=== PATIENT | female | born 1955 | race Asian ===

== ENCOUNTER → 2016-04-03 | Outpatient (CLI) | payer MEDICAID | LOC: WI 07:50 | PROVIDERS: ATTEND Internal Medicine Rheumatology | DX: M81.0 Age-related osteoporosis without current pathological fracture (principal); Z79.52 Long term (current) use of systemic steroids | CPT/HCPCS: 77080 ==

== ENCOUNTER → 2016-04-05 | Outpatient (CLI) | payer MEDICAID | LOC: OD 09:50 | PROVIDERS: ATTEND Internal Medicine Critical Care Medicine | DX: J44.9 Chronic obstructive pulmonary disease, unspecified (principal); K21.9 Gastro-esophageal reflux disease without esophagitis; R06.00 Dyspnea, unspecified; Z87.01 Personal history of pneumonia (recurrent); R91.8 Other nonspecific abnormal finding of lung field; J45.909 Unspecified asthma, uncomplicated; J45.901 Unspecified asthma with (acute) exacerbation | CPT/HCPCS: 36415; 82785 ==

== ENCOUNTER → 2016-04-25 | Outpatient (CLI) | payer MEDICAID ==
[2016-04-25 08:24] LABS: ABSOLUTE LYMPHOCYTES (AUTO) 1.4 10^3/uL (0.5-4.7); ABSOLUTE MONOCYTES (AUTO) 0.4 10^3/uL (0.1-1.4); ABSOLUTE NEUT (AUTO) 5.2 10^3/uL (1.7-8.2); BASOPHILS % (AUTO) 0.4 % (0-2); EOSINOPHILS % (AUTO) 0.2 % (0-6); HEMATOCRIT 42.2 % (36.0-47.0); HEMOGLOBIN 13.4 g/dL (12.0-15.5); LYMPHOCYTES % (AUTO) 19.4 % (13-45); MEAN CORPUSCULAR HEMOGLOBIN 21.4 pg (27.0-33.4); MEAN CORPUSCULAR HGB CONC 31.7 g/dL (32.0-36.0); MEAN CORPUSCULAR VOLUME 68 fl (80-97); MONOCYTES % (AUTO) 6.4 % (3-13); RED BLOOD COUNT 6.25 10^6/uL (3.72-5.28); RED CELL DISTRIBUTION WIDTH 14.8 % (11.5-14.0); SEGMENTED NEUTROPHILS % (AUTO) 73.6 % (42-78)
[2016-04-25 08:51] LABS: ALANINE AMINOTRANSFERASE 20 U/L (9-52); ALBUMIN 4.2 g/dL (3.5-5.0); ALKALINE PHOSPHATASE 52 U/L (38-126); ANION GAP 12 (5-19); ASPARTATE AMINO TRANSFERASE 31 U/L (14-36); BILIRUBIN,TOTAL 0.6 mg/dL (0.2-1.3); BLOOD UREA NITROGEN 15 mg/dL (7-20); CALCIUM 9.7 mg/dL (8.4-10.2); CARBON DIOXIDE 27 mmol/L (22-30); CHLORIDE 104 mmol/L (98-107); CHOLESTEROL 219.74 mg/dL (0-200); CREATININE RESULT 0.61 mg/dL (0.52-1.25); GLUCOSE 102 mg/dL (75-110); POTASSIUM 4.4 mmol/L (3.6-5.0); SODIUM 142.6 mmol/L (137-145); TOTAL PROTEIN 7.1 g/dL (6.3-8.2); TRIGLYCERIDES 49 mg/dL (<150)
[2016-04-25 09:02] LABS: DIRECT LDL 71 mg/dL (<100)
[2016-04-25 09:03] LABS: Direct HDL 126 mg/dL (>40)
== END ==
LOC: OD 07:26
PROVIDERS: ATTEND Internal Medicine
DX: R73.9 Hyperglycemia, unspecified (principal); I10 Essential (primary) hypertension; E78.5 Hyperlipidemia, unspecified; J45.901 Unspecified asthma with (acute) exacerbation; M30.1 Polyarteritis with lung involvement [Churg-Strauss]
CPT/HCPCS: 36415; 80053; 80061; 83036; 84443; 85025

== ENCOUNTER → 2017-01-25 | Outpatient (CLI) | payer MEDICAID ==
[2017-01-25 10:14] LABS: ABSOLUTE BASOPHILS # (AUTO) 0.1 10^3/uL (0.0-0.2); ABSOLUTE EOSINOPHILS # (AUTO) 0.5 10^3/uL (0.0-0.6); ABSOLUTE LYMPHOCYTES (AUTO) 1.4 10^3/uL (0.5-4.7); ABSOLUTE MONOCYTES (AUTO) 0.9 10^3/uL (0.1-1.4); ABSOLUTE NEUT (AUTO) 12.3 10^3/uL (1.7-8.2); BASOPHILS % (AUTO) 0.4 % (0-2); EOSINOPHILS % (AUTO) 3.2 % (0-6); HEMATOCRIT 40.5 % (36.0-47.0); HEMOGLOBIN 12.8 g/dL (12.0-15.5); HGB HCT DIFFERENCE -2.1; LYMPHOCYTES % (AUTO) 8.9 % (13-45); MEAN CORPUSCULAR HEMOGLOBIN 21.2 pg (27.0-33.4); MEAN CORPUSCULAR HGB CONC 31.5 g/dL (32.0-36.0); MEAN CORPUSCULAR VOLUME 67 fl (80-97); MONOCYTES % (AUTO) 5.7 % (3-13); RED BLOOD COUNT 6.03 10^6/uL (3.72-5.28); RED CELL DISTRIBUTION WIDTH 15.6 % (11.5-14.0); SEGMENTED NEUTROPHILS % (AUTO) 81.8 % (42-78); WHITE BLOOD COUNT 15.1 10^3/uL (4.0-10.5)
== END ==
LOC: OD 09:07
PROVIDERS: ATTEND Internal Medicine Critical Care Medicine
DX: J45.901 Unspecified asthma with (acute) exacerbation (principal); J44.9 Chronic obstructive pulmonary disease, unspecified; R91.8 Other nonspecific abnormal finding of lung field; J15.1 Pneumonia due to Pseudomonas; A31.9 Mycobacterial infection, unspecified; Z87.01 Personal history of pneumonia (recurrent)
CPT/HCPCS: 36415; 85025; 87015; 87070; 87077; 87101; 87116; 87186; 87205; 87206

== ENCOUNTER → 2017-02-07 | Outpatient (CLI) | payer MEDICAID | LOC: OD 11:14 | PROVIDERS: ATTEND Internal Medicine Critical Care Medicine | DX: A31.9 Mycobacterial infection, unspecified (principal); J82 Pulmonary eosinophilia, not elsewhere classified; K21.9 Gastro-esophageal reflux disease without esophagitis | CPT/HCPCS: 36415; 82785 ==

== ENCOUNTER 2017-02-25 15:48 | Inpatient (IN) | payer MEDICAID ==
--- NOTE | 2017-02-25 17:26 | EKG REPORT ---
SEVERITY:- NORMAL ECG - SINUS RHYTHM : Confirmed by: Demi Yu 25-Feb-2017 17:25:51
--- NOTE | 2017-02-25 17:30 | ER Document Report ---
ED Medical Screen (RME) - General Chief Complaint: Shortness Of Breath Stated Complaint: SHORTNESS OF BREATH Time Seen by Provider: 02/25/17 17:27 Mode of Arrival: Wheelchair Information source: Patient Notes: 61-year-old female presents to ED for shortness of breath for couple months. States she has been to Janusz Miramontes MD's office multiple times. States she had blood work chest x-ray and other test done this morning. States that the doctor's office called her and told her to come to the emergency room. VQ scan from earlier today shows high probability of a pulmonary emboli. Lungs at this time are diminished with wheezes, EKG is sinus rhythm, vital signs are stable with respirations of 20 pulse ox of 97 and pulse of 82. Patient states that the doctor gives her prednisone sometimes but as soon as she finished him the symptoms come right back she states that the last time she got prednisone was last week and she got 20 mg daily for 5 days. I have greeted and performed a rapid initial assessment of this patient. A comprehensive ED assessment and evaluation of the patient, analysis of test results and completion of medical decision making process will be conducted by an additional ED providers. TRAVEL OUTSIDE OF THE [place] IN LAST 30 DAYS: No - Related Data Allergies/Adverse Reactions: acetaminophen [From Percocet] Allergy (Severe, Verified 11/23/14 09:14) Anaphylaxis oxycodone HCl [From Percocet] Allergy (Severe, Verified 11/23/14 09:14) Anaphylaxis Shellfish * [Shellfish] Allergy (Severe, Verified 11/23/14 09:14) Anaphylaxis Past Medical History - Social History Chew tobacco use (# tins/day): No Frequency of alcohol use: Rare Drug Abuse: None - Past Medical History Cardiac Medical History: Denies: Hx Coronary Artery Disease, Hx Heart Attack, Hx Hypertension Pulmonary Medical History: Reports: Hx Asthma - inhalers Denies: Hx Bronchitis, Hx COPD, Hx Pneumonia Neurological Medical History: Denies: Hx Cerebrovascular Accident, Hx Seizures Renal/ Medical History: Denies: Hx Peritoneal Dialysis GI Medical History: Reports: Hx Ulcer. Denies: Hx Hepatitis, Hx Hiatal Hernia Musculoskeltal Medical History: Reports Hx Arthritis Infectious Medical History: Denies: Hx Hepatitis Past Surgical History: Denies: Hx Hysterectomy, Hx Mastectomy, Hx Open Heart Surgery, Hx Pacemaker - Immunizations Hx Diphtheria, Pertussis, Tetanus Vaccination: No Physical Exam - Vital signs Vitals: Temp Pulse Resp BP Pulse Ox 97.6 F 82 16 148/92 H 98 02/25/17 16:08 02/25/17 16:08 02/25/17 16:08 02/25/17 16:08 02/25/17 16:08 Course - Vital Signs Vital signs: Temp Pulse Resp BP Pulse Ox 97.6 F 82 16 148/92 H 98 02/25/17 16:08 02/25/17 16:08 02/25/17 16:08 02/25/17 16:08 02/25/17 16:08
[2017-02-25 19:37] LABS: INTERNATIONAL RATION (INR) 0.88; PROTHROMBIN TIME 12.6 SEC (11.4-15.4)
[2017-02-25 19:38] LABS: PARTIAL THROMBOPLASTIN TIME 36.8 SEC (23.5-35.8)
[2017-02-25] MEDS ORDERED: METHYLPREDNISOLONE INJ 125 MG/2 ML SDV IV ONE (19:54)
[2017-02-25] MEDS ORDERED: IPRATROPIUM/ALBUTEROL 0.5-2.5 MG/3 ML AMPUL NEB ONE (19:54)
--- NOTE | 2017-02-25 19:55 | ER Document Report ---
ED Respiratory Problem - General Chief Complaint: Shortness Of Breath Stated Complaint: SHORTNESS OF BREATH Time Seen by Provider: 02/25/17 17:27 Mode of Arrival: Wheelchair Notes: Patient is a 61-year-old female who presents emergency department complaining of cough, wheezing and shortness of breath since September. Patient states that she has been following with her primary care doctor Dr. Miramontes as well as her product safety associate Dr. Joseph who have done burst prednisone treatments for her maybe once or twice a month for shortness of breath. Patient states that her breathing improves but then approximately 10-14 days later she is back to shortness of breath and wheezing. Patient states that she is utilizing her home nebulizer treatments with minimal improvement in her symptoms. Patient was referred to the emergency department today by her primary care doctor based on results of her VQ scan today. Review of the chart shows concern for right- sided pulmonary embolism. Patient does admit to a history of recurrent travel she states that she drives up to [place] very frequently and recently flew back from [place] in November. She denies any history of PE or blood clot. Besides a history of asthma she denies any other medical problems. TRAVEL OUTSIDE OF THE [place] IN LAST 30 DAYS: No - Related Data Allergies/Adverse Reactions: acetaminophen [From Percocet] Allergy (Severe, Verified 11/23/14 09:14) Anaphylaxis oxycodone HCl [From Percocet] Allergy (Severe, Verified 11/23/14 09:14) Anaphylaxis Shellfish * [Shellfish] Allergy (Severe, Verified 11/23/14 09:14) Anaphylaxis Past Medical History - General Information source: Patient - Social History Smoking Status: Never Smoker Chew tobacco use (# tins/day): No Frequency of alcohol use: Rare Drug Abuse: None Family History: Reviewed & Not Pertinent Patient has suicidal ideation: No Patient has homicidal ideation: No - Past Medical History Cardiac Medical History: Denies: Hx Coronary Artery Disease, Hx Heart Attack, Hx Hypertension Pulmonary Medical History: Reports: Hx Asthma - inhalers Denies: Hx Bronchitis, Hx COPD, Hx Pneumonia Neurological Medical History: Denies: Hx Cerebrovascular Accident, Hx Seizures Renal/ Medical History: Denies: Hx Peritoneal Dialysis GI Medical History: Reports: Hx Ulcer. Denies: Hx Hepatitis, Hx Hiatal Hernia Musculoskeltal Medical History: Reports Hx Arthritis Infectious Medical History: Denies: Hx Hepatitis Past Surgical History: Reports: Hx Appendectomy, Hx Cholecystectomy. Denies: Hx Hysterectomy, Hx Mastectomy, Hx Open Heart Surgery, Hx Pacemaker - Immunizations Hx Diphtheria, Pertussis, Tetanus Vaccination: No Review of Systems - Review of Systems Constitutional: No symptoms reported EENT: No symptoms reported Cardiovascular: No symptoms reported Respiratory: See HPI Gastrointestinal: No symptoms reported Musculoskeletal: No symptoms reported -: Yes All other systems reviewed and negative Physical Exam - Vital signs Vitals: Temp Pulse Resp BP Pulse Ox 97.6 F 82 16 148/92 H 98 02/25/17 16:08 02/25/17 16:08 02/25/17 16:08 02/25/17 16:08 02/25/17 16:08 - Notes Notes: PHYSICAL EXAM GENERAL: Alert, interacts well. HEAD: Normocephalic, atraumatic. EYES: Pupils equal, round, and reactive to light. Extraocular movements intact. ENT: Oral mucosa moist, tongue midline. NECK: Full range of motion. Supple. Trachea midline. LUNGS: diffuse wheezes without rales, or rhonchi. No respiratory distress. HEART: Regular rate and rhythm. No murmurs, gallops, or rubs. ABDOMEN: Soft, nondistended, nontender. No guarding, rebound, or rigidity.. Bowel sounds present in all 4 quadrants. EXTREMITIES: Moves all 4 extremities spontaneously. No edema, radial and dorsalis pedis pulses 2/4 bilaterally. No cyanosis. NEUROLOGICAL: Alert and oriented x4. Normal speech. PSYCH: Normal affect, normal mood. SKIN: Warm, dry, normal turgor. No rashes or lesions noted. Course - Re-evaluation Re-evalutation: 02/25/17 20:00 Patient is a 61-year-old female who is hemodynamically stable, no acute distress and afebrile. Presentation is concerning for PE with cor pulmonale versus acute asthma exacerbation. Did review case with admitting hospitalist Dr. Kwok who recommends a CTA of the chest and will admit at this time. Patient will receive a dose of Lovenox as well as albuterol treatments in the department. Reviewed plan with family at the bedside who are agreeable with plan. - Vital Signs Vital signs: Temp Pulse Resp BP Pulse Ox 97.6 F 82 22 H 122/87 H 97 02/25/17 16:08 02/25/17 16:08 02/26/17 00:46 02/26/17 02:15 02/26/17 02:15 - Laboratory Laboratory results interpreted by me: 02/25/17 02/25/17 19:10 20:50 APTT 36.8 H ABG pO2 65.0 L ABG Total CO2 25.4 H ABG O2 Saturation 93.5 L - Diagnostic Test Radiology reviewed: Image reviewed, Reports reviewed - EKG Interpretation by Me EKG shows normal: Sinus rhythm Rate: Normal Rhythm: NSR When compared to previous EKG there are: No significant change Discharge - Discharge Clinical Impression: Pulmonary embolism Qualifiers: Pulmonary embolism type: other Chronicity: unspecified Acute cor pulmonale presence: with acute cor pulmonale Qualified Code(s): I26.09 - Other pulmonary embolism with acute cor pulmonale Condition: Stable Disposition: ADMITTED INPATIENT Admitting Provider: Hospitalist Unit Admitted: [facility]
[2017-02-25] MEDS: ALBUTEROL SULFATE 0.083% NEB 2.5 MG/3 ML AMPUL NEB SCH ×2 (20:17→21:41)
[2017-02-25 21:11] LABS: ARTERIAL BLOOD BASE EXCESS 0.4 mmol/L; ARTERIAL BLOOD H2CO3 1.11 mmol/L (1.05-1.35); ARTERIAL BLOOD HCO3 24.3 mmol/L (20-26); ARTERIAL BLOOD O2 SATURATION 93.5 % (94-98); ARTERIAL BLOOD PCO2 36.8 mmHg (35-45); ARTERIAL BLOOD PH 7.44 (7.35-7.45); ARTERIAL BLOOD TOTAL CO2 25.4 mmol/L (21-25)
[2017-02-25 21:13] LABS: ARTERIAL BLOOD FIO2 ROOM AIR
[2017-02-25] MEDS ORDERED: METHYLPREDNISOLONE INJ 40 MG/1 ML SDV IV SCH (22:00)
[2017-02-25] MEDS ORDERED: ENOXAPARIN SODIUM INJ 60 MG/0.6 ML DISP.SYRIN SUBCUT SCH ×2 (22:00)
[2017-02-25] MEDS ORDERED: LIDOCAINE 1% INJ-PF (10 MG/ML) 30 ML SDV ONE (23:23)
[2017-02-25] MEDS: ONDANSETRON HCL INJ/PF 4 MG/2 ML SDV IV PRN (23:47)
[2017-02-26 01:04] LABS: CREATINE KINASE MB 1.69 ng/mL (<4.55)
[2017-02-26 01:06] LABS: TROPONIN I < 0.012 ng/mL
--- NOTE | 2017-02-26 01:06 | RADIOLOGY REPORT (SQ) ---
EXAM DESCRIPTION: CHEST SINGLE VIEW CLINICAL HISTORY: 61 years, Female, central line placement COMPARISON: 02/25/2017. LIMITATIONS: None. FINDINGS: Normal lung volume, clear parenchyma, normal cardiac silhouette, and intact bony thorax. Left subclavian central line tip at the cavoatrial junction. IMPRESSION: No acute cardiopulmonary findings. 2010 [employer]- All Rights Reserved
[2017-02-26] MEDS ORDERED: MAG HYDROX/AL HYDROX/SIMETH SUSP 30 ML UDCUP PO PRN (01:27)
[2017-02-26] MEDS ORDERED: ACETAMINOPHEN 325 MG TABLET PO ONE (01:28)
--- NOTE | 2017-02-26 01:46 | RADIOLOGY REPORT (SQ) ---
EXAM DESCRIPTION: CTA CHEST CLINICAL HISTORY: 61 years Female, SOB, PE, eval location COMPARISON: 02/25/2017. TECHNIQUE: 80 mL Isovue-370 IV contrast. Coronal and sagittal reformat. This exam was performed according to our departmental dose-optimization program, which includes automated exposure control, adjustment of the mA and/or kV according to patient size and/or use of iterative reconstruction technique. FINDINGS: Small soft tissue emphysema of the left neck and left supraclavicular space and left upper mediastinum. Bilateral mammary prostheses; multiple folds of the left mammary prosthesis partially imaged which may indicate decompression/rupture. Left subclavian central line tip at the cavoatrial junction. Small calcified granuloma of the right hilum and right lower lobe. Mild dextroconvexity. No pulmonary embolus. No right ventricular strain. Inferior neck, lungs, airway, lymphatics, heart, vasculature, upper abdomen, and musculoskeleton appear otherwise unremarkable. IMPRESSION: 1. Small nonspecific soft tissue emphysema of the left upper hemithorax and minimally at the left upper mediastinum. 2. Possible decompression/rupture of a left mammary prosthesis; consider MRI correlation. 3. No pulmonary embolus.
[2017-02-26] MEDS ORDERED: PROMETHAZINE HCL INJ 25 MG/1 ML VIAL IV ONE (01:47)
[2017-02-26 02:26] LABS: APPEARANCE,URINE CLEAR; BILIRUBIN,URINE NEGATIVE (NEGATIVE); COLOR,URINE COLORLESS; GLUCOSE, URINE NEGATIVE (NEGATIVE); KETONES,URINE NEGATIVE (NEGATIVE); LEUKOCYTE ESTERASE,URINE NEGATIVE (NEGATIVE); NITRITE,URINE NEGATIVE (NEGATIVE); PROTEIN,URINE NEGATIVE (NEGATIVE); URINE SPECIFIC GRAVITY 1.015; UROBILINOGEN,URINE NEGATIVE mg/dL (<2.0)
[2017-02-26] MEDS: PREGABALIN 100 MG CAPSULE PO SCH ×4 (02:57→21:49)
[2017-02-26] MEDS: NORMAL SALINE 1000 ML 1,000 ML IV PRN (03:51)
[2017-02-26] MEDS ORDERED: PROMETHAZINE HCL INJ 25 MG/1 ML VIAL IV PRN (06:05)
[2017-02-26] MEDS ORDERED: NORMAL SALINE 1000 ML 1,000 ML IV ONE (06:05)
--- NOTE | 2017-02-26 06:12 | PDOC H&P ---
History of Present Illness Admission Date/PCP: 02/25/17 21:08 GURDEEP BANG, History of Present Illness: ROSEMARIE SOOD is a 61 year old female with past medical history of Churg- Emery disease, neuropathy, COPD who presents with shortness of breath. She reports that she has been short of breath on and off since September. She reports that she does intermittently improve when she is on steroids. She reports over the last month she has had increasing shortness of breath as well as dyspnea on exertion and dizziness. She denies any lower extremity swelling. Patient obtain an outpatient VQ scan which was found to be positive for pulmonary embolus. She is referred to the hospitalist service for evaluation of pulmonary embolus. Past Medical History Cardiac Medical History: Denies: Coronary Artery Disease, Myocardial Infarction, Hypertension Pulmonary Medical History: Reports: Asthma - inhalers Denies: Bronchitis, Chronic Obstructive Pulmonary Disease (COPD), Pneumonia Neurological Medical History: Denies: Seizures GI Medical History: Denies: Hepatitis, Hiatal Hernia Musculoskeltal Medical History: Reports: Arthritis Hematology: Denies: Anemia, Sickle Cell Disease Past Surgical History Past Surgical History: Reports: Appendectomy, Cholecystectomy, Other - Breast implants Denies: Amputation, Hysterectomy, Mastectomy, Pacemaker Social History Smoking Status: Never Smoker Frequency of Alcohol Use: None Hx Recreational Drug Use: No Hx Prescription Drug Abuse: No - Advance Directive Resuscitation Status: Full Code Surrogate healthcare decision maker:: Kristina Sky, Daughter Family History Family History: DM, Other - Asthma Parental Family History Reviewed: Yes Children Family History Reviewed: Yes Sibling(s) Family History Reviewed.: Yes Medication/Allergy Allergies/Adverse Reactions: acetaminophen [From Percocet] Allergy (Severe, Verified 11/23/14 09:14) Anaphylaxis oxycodone HCl [From Percocet] Allergy (Severe, Verified 11/23/14 09:14) Anaphylaxis Shellfish * [Shellfish] Allergy (Severe, Verified 11/23/14 09:14) Anaphylaxis Review of Systems Constitutional: ABSENT: chills, fever(s), headache(s), weight gain, weight loss Eyes: ABSENT: visual disturbances Ears: ABSENT: hearing changes Cardiovascular: PRESENT: dyspnea on exertion, orthropnea. ABSENT: chest pain, edema, palpitations Respiratory: PRESENT: dyspnea. ABSENT: cough, hemoptysis, sputum Gastrointestinal: PRESENT: nausea. ABSENT: abdominal pain, constipation, diarrhea, hematemesis, hematochezia, melena, vomiting Genitourinary: ABSENT: dysuria, hematuria Musculoskeletal: ABSENT: joint swelling Integumentary: ABSENT: rash, wounds Neurological: PRESENT: syncope. ABSENT: abnormal gait, abnormal speech, confusion, dizziness, focal weakness Psychiatric: ABSENT: anxiety, depression, homidical ideation, suicidal ideation Endocrine: ABSENT: cold intolerance, heat intolerance, polydipsia, polyuria Hematologic/Lymphatic: ABSENT: easy bleeding, easy bruising Physical Exam Vital Signs: Temp Pulse Resp BP Pulse Ox 97.6 F 82 18 144/114 H 100 02/25/17 16:08 02/25/17 16:08 02/25/17 19:31 02/25/17 19:31 02/25/17 19:31 General appearance: PRESENT: mild distress, well-developed, well-nourished Head exam: PRESENT: atraumatic, normocephalic Eye exam: PRESENT: conjunctiva pink, EOMI, PERRLA. ABSENT: scleral icterus Ear exam: PRESENT: normal external ear exam Mouth exam: PRESENT: dry mucosa, tongue midline Neck exam: ABSENT: JVD, lymphadenopathy, thyromegaly, tracheal deviation Respiratory exam: PRESENT: symmetrical, tachypnea, unlabored, wheezes. ABSENT: accessory muscle use, prolonged expiratory phas, rales, retraction, rhonchi Cardiovascular exam: PRESENT: RRR, +S1, +S2, systolic murmur. ABSENT: diastolic murmur, rubs Pulses: PRESENT: normal dorsalis pedis pul Vascular exam: PRESENT: normal capillary refill GI/Abdominal exam: PRESENT: normal bowel sounds, soft. ABSENT: distended, firm , guarding, mass, Aguirre's sign, organolmegaly, rebound, rigid, tenderness Rectal exam: PRESENT: deferred Extremities exam: PRESENT: full ROM. ABSENT: calf tenderness, clubbing, pedal edema Neurological exam: PRESENT: alert, awake, oriented to person, oriented to place , oriented to time, oriented to situation, CN II-XII grossly intact. ABSENT: motor sensory deficit Psychiatric exam: PRESENT: appropriate affect, normal mood. ABSENT: homicidal ideation, suicidal ideation Skin exam: PRESENT: dry, intact, warm. ABSENT: cyanosis, rash Results Laboratory Results: 02/25/17 02/25/1718 00:05 00:05 19:10 INR 0.88 APTT 36.8 H ABG pH ABG pCO2 ABG pO2 ABG HCO3 Troponin I < 0.012 TSH 3.07 Ur Specific [place] 02/25/17 02/26/17 20:50 02:11 INR APTT ABG pH 7.44 ABG pCO2 36.8 ABG pO2 65.0 L ABG HCO3 24.3 Troponin I TSH Ur Specific [place] 1.015 Assessment & Plan - Diagnosis (1) Churg-Emery syndrome with lung involvement Is this a current diagnosis for this admission?: Yes Plan: Patient significant other reports a history of Churg-Emery disease. Patient currently is having nausea, vomiting, neuropathy, and shortness of breath. Patient meets 2/5 5 factor score. Have initiated her on Solu-Medrol. Patient requests to see a different precision lens grinder at this time. Would recommend the patient be placed on cyclophosphamide or azathioprine or methotrexate. Will send and ANCA. (2) Dehydration Is this a current diagnosis for this admission?: Yes Plan: Place patient on gentle IV hydration. Patient was so dehydrated that she required a central line. (3) Pulmonary embolism Qualifiers: Pulmonary embolism type: other Chronicity: unspecified Acute cor pulmonale presence: without acute cor pulmonale Qualified Code(s): I26.99 - Other pulmonary embolism without acute cor pulmonale Is this a current diagnosis for this admission?: Yes Plan: Patient actually ruled out for acute pulmonary embolus with a negative CTA. Patient's wheezing, dyspnea, and shortness of breath are likely secondary to her Churg-Emery disease. - Time Time Spent: 50 to 70 Minutes Medications reviewed and adjusted accordingly: Yes Anticipated discharge: Home - Inpatient Certification Based on my medical assessment, after consideration of the patient's comorbidities, presenting symptoms, or acuity I expect that the services needed warrant INPATIENT care.: Yes I certify that my determination is in accordance with my understanding of Medicare's requirements for reasonable and necessary INPATIENT services [42 CFR 412.3e].: Yes Medical Necessity: Need For IV Fluids, Need For Continuous Telemetry Monitoring , Need for Nebulizer Therapy and Monitoring of Response Post Hospital Care: D/C Fire Services Plumber Documentation
--- NOTE | 2017-02-26 06:13 | OPERATIVE REPORT E ---
Operative Report NAME: ROSEMARIE SOOD : 1955 AGE: 61Y DATE OF SURGERY: 02/25/2017 ROOM: ED11 PREOPERATIVE DIAGNOSIS: Poor veins for IV access and suspicious for pulmonary embolism, needed IV for CT angio of the chest. POSTOPERATIVE DIAGNOSIS: Poor veins for IV access and suspicious for pulmonary embolism, needed IV for CT angio of the chest. PROCEDURE: Insertion of subclavian vein triple lumen catheter. SURGEON: YOGI HINSON M.D. ANESTHESIA: Local. INDICATION: This is a 61-year-old female with known history of asthma and noted to have a possible PE on V/Q scan outpatient. Patient then went to the emergency room where sent by her primary physician for patient to have a CT angio. Unfortunately, no vein in the arms can be obtained, and because of this, he needed a central line. DESCRIPTION OF PROCEDURE: The patient was placed in supine, slightly Trendelenburg position, and the left chest and neck were then prepped and draped in the usual sterile fashion. Local anesthesia infiltrated left infraclavicular area and the left subclavian vein was eventually punctured. Prior to this, a single attempt to cannulate the left internal jugular vein was done after local anesthesia infiltrated in the neck. This was unsuccessful. Because of this, more local anesthesia was infiltrated along the left infraclavicular area. Patient did complain of a lot of pain initially, and following more anesthesia, patient felt more comfortable. This time, the left subclavian vein was then punctured and guidewire passed through the needle towards the area of the superior vena cava. Incision site was then dilated and a triple-lumen catheter inserted up to a distance of about 17 cm. The other 3 ports aspirated blood easily except the middle port, which somehow unable to spread blood. However, all the ports easily injected with saline. Next, the insertion site was then anchored to the skin with 3-0 silk. A Biopatch placed at the insertion site and a transpire dressing placed over the Biopatch and catheter. A chest x-ray was obtained, which showed the catheter in good position in the area of the superior vena cava before the right atrium. There is no obvious pneumothorax. Patient did have some episodes of nausea immediately after the procedure, but after x-ray was done, was more relaxed and comfortable. Her vital signs remained unchanged before, during, and after the procedure. The patient tolerated the procedure quite well. DICTATING PHYSICIAN: YOGI HINSON M.D. [id number] PHY#: [id number] ID: [id number] JOB#: [id number] ACCT: [id number] cc:YOGI HINSON M.D. >
[2017-02-26 06:55] LABS: HEMATOCRIT 38.4 % (36.0-47.0); MEAN CORPUSCULAR HEMOGLOBIN 21.3 pg (27.0-33.4); MEAN CORPUSCULAR VOLUME 67 fl (80-97); PLATELET COUNT 168 10^3/uL (150-450); RED BLOOD COUNT 5.76 10^6/uL (3.72-5.28); RED CELL DISTRIBUTION WIDTH 15.9 % (11.5-14.0); WHITE BLOOD COUNT 8.1 10^3/uL (4.0-10.5)
[2017-02-26 07:11] LABS: TROPONIN I < 0.012 ng/mL
[2017-02-26 07:12] LABS: ABSOLUTE LYMPHOCYTES# (MANUAL) 0.3 10^3/uL (0.5-4.7); ABSOLUTE MONOCYTES # (MANUAL) 0.1 10^3/uL (0.1-1.4); ABSOLUTE NEUTROPHILS# (MANUAL) 7.7 10^3/uL (1.7-8.2); BAND NEUTROPHILS % (MANUAL) 1 % (3-5); BASOPHILS % (MANUAL) 0 % (0-2); EOSINOPHILS % (MANUAL) 0 % (0-6); LYMPHOCYTES % (MANUAL) 4 % (13-45); MONOCYTES % (MANUAL) 1 % (3-13); SEGMENTED NEUTROPHILS % (MAN) 94 % (42-78); TOTAL CELLS COUNTED 100
[2017-02-26 07:13] LABS: HYPOCHROMASIA SLIGHT; OVALOCYTES SLIGHT; PLATELET COMMENT ADEQUATE; POIKILOCYTOSIS SLIGHT; SCHISTOCYTES SLIGHT; TOXIC GRANULATION SLIGHT
[2017-02-26 07:14] LABS: HEMOGLOBIN 12.3 g/dL (12.0-15.5)
[2017-02-26 07:28] LABS: ANION GAP 9 (5-19); BLOOD UREA NITROGEN 11 mg/dL (7-20); CALCIUM 8.6 mg/dL (8.4-10.2); CARBON DIOXIDE 23 mmol/L (22-30); CHLORIDE 109 mmol/L (98-107); CREATINE KINASE 121 U/L (30-135); GLUCOSE 166 mg/dL (75-110); IRON(TIBC) 41.6 ug/dL (37-170); MAGNESIUM 2.1 mg/dL (1.6-2.3); POTASSIUM 3.8 mmol/L (3.6-5.0); SODIUM 140.7 mmol/L (137-145)
[2017-02-26] MEDS: IPRATROPIUM/ALBUTEROL 0.5-2.5 MG/3 ML AMPUL NEB PRN ×2 (08:10→16:45)
--- NOTE | 2017-02-26 09:11 | PDOC PROGRESS REPORT ---
Subjective Progress Note for:: 02/26/17 Subjective:: The patient states to feel better. She still has some shortness of breath. Her repeat CTA did not show any acute pulmonary emboli. The possibility of VQ scan being positive is most probably consistent with chronic emboli Reason For Visit: PULMONARY EMBOLUS Physical Exam Vital Signs: Temp Pulse Resp BP Pulse Ox 97.6 F 112 H 23 H 126/72 H 99 02/26/17 07:01 02/26/17 08:10 02/26/17 08:31 02/26/17 08:31 02/26/17 08:31 General appearance: PRESENT: mild distress Head exam: PRESENT: atraumatic Eye exam: PRESENT: conjunctiva pink Neck exam: ABSENT: carotid bruit, JVD Respiratory exam: PRESENT: rhonchi, wheezes Cardiovascular exam: PRESENT: RRR, +S1, +S2 Pulses: PRESENT: +1 pedal pulses bilateral GI/Abdominal exam: PRESENT: soft Extremities exam: PRESENT: full ROM Musculoskeletal exam: PRESENT: ambulatory Neurological exam: PRESENT: alert, awake Results Laboratory Results: 02/26/17 06:15 02/26/17 06:15 02/26/17 02/26/17 02/26/17 02:11 06:15 06:15 WBC 8.1 RBC 5.76 H Hgb 12.3 D Hct 38.4 MCV 67 L MCH 21.3 L MCHC 32.0 RDW 15.9 H Plt Count 168 Seg Neutrophils % Not Reportable Lymphocytes % Not Reportable Monocytes % Not Reportable Eosinophils % Not Reportable Basophils % Not Reportable Absolute Neutrophils Not Reportable Absolute Lymphocytes Not Reportable Absolute Monocytes Not Reportable Absolute Eosinophils Not Reportable Absolute Basophils Not Reportable Retic Count (auto) 0.70 Absolute Retic 0.040 Sodium 140.7 Potassium 3.8 Chloride 109 H Carbon Dioxide 23 Anion Gap 9 BUN 11 Creatinine 0.63 Est GFR ( Amer) > 60 Est GFR (Non-Af Amer) > 60 Glucose 166 H Calcium 8.6 Magnesium 2.1 Iron 41.6 TIBC 220 L % Saturation 19 Ferritin 66.40 Vitamin B12 713.0 Folate 17.40 Urine Color COLORLESS Urine Appearance CLEAR Urine pH 7.0 Ur Specific [place] 1.015 Urine Protein NEGATIVE Urine Glucose (UA) NEGATIVE Urine Ketones NEGATIVE Urine Blood NEGATIVE Urine Nitrite NEGATIVE Ur Leukocyte Esterase NEGATIVE Urine WBC (Auto) 1 02/26/17 02/26/17 06:15 06:15 Creatine Kinase 121 CK-MB (CK-2) 1.70 Troponin I < 0.012 Impressions: Chest X-Ray 02/25/17 00:00 IMPRESSION: No acute cardiopulmonary findings. 2010 [employer]- All Rights Reserved Chest/Abdomen CTA 02/25/17 20:07 IMPRESSION: 1. Small nonspecific soft tissue emphysema of the left upper hemithorax and minimally at the left upper mediastinum. 2. Possible decompression/rupture of a left mammary prosthesis; consider MRI correlation. 3. No pulmonary embolus. Assessment & Plan - Diagnosis (1) Churg-Emery syndrome with lung involvement Is this a current diagnosis for this admission?: Yes Plan: We will continue with IV steroids and discuss with pulmonology about adding the biologicals. (2) Dehydration Is this a current diagnosis for this admission?: Yes Plan: Continue IV fluids (3) Pulmonary embolism Qualifiers: Pulmonary embolism type: other Chronicity: unspecified Acute cor pulmonale presence: without acute cor pulmonale Qualified Code(s): I26.99 - Other pulmonary embolism without acute cor pulmonale Is this a current diagnosis for this admission?: Yes Plan: We will reevaluate for chronic pulmonary emboli. Will consult with pulmonology. The patient might need to be started on biologicals. (4) GERD (gastroesophageal reflux disease) Is this a current diagnosis for this admission?: Yes Plan: Continue PPIs
[2017-02-26] MEDS: TRAMADOL HCL 50 MG TABLET PO PRN ×2 (10:03→20:00)
[2017-02-26] MEDS: ENOXAPARIN SODIUM INJ 60 MG/0.6 ML DISP.SYRIN SUBCUT SCH ×2 (10:03→21:49)
[2017-02-26] MEDS: METHYLPREDNISOLONE INJ 40 MG/1 ML SDV IV SCH ×3 (12:30→23:43)
[2017-02-26 14:23] LABS: CREATINE KINASE MB 1.67 ng/mL (<4.55)
[2017-02-26 14:29] LABS: TROPONIN I < 0.012 ng/mL
--- NOTE | 2017-02-26 15:35 | PDOC CONSULTATION ---
Consultation Consult Date: 02/26/17 Attending physician:: KEVIN MACARIO Consult reason:: dyspnea History of Present Illness Admission Date/PCP: 02/25/17 21:08 GURDEEP BNAG, History of Present Illness: ROSEMARIE SOOD is a 61 year old female with past medical history of Churg- Emery disease, neuropathy, COPD who presents with shortness of breath. She reports that she has been short of breath on and off since September. She reports that she does intermittently improve when she is on steroids. She reports over the last month she has had increasing shortness of breath as well as dyspnea on exertion and dizziness. She denies any lower extremity swelling. Patient obtain an outpatient VQ scan which was found to be positive for pulmonary embolus.She denies a history of asthma as a child and it only began when she moved to this country from [place]. She admits to shortness of breath as well as dyspnea on exertion with activities of daily living. She has scant cough no hemoptysis her PPD status is unknown no history of chronic lung disease as a child or adolescent. She admits to exposure to passive smoke as a child particularly and somewhat as an adult. She has never smoked. He has no significant occupational exposure to potential respiratory toxins. She has 2 dogs she denies any recent travel. He does state she has occasional tightness in her chest sleeps on 1 or 2 pillows denies PND occasional nocturnal cough and occasional edema. She is unaware of any snoring she denies restless sleep nocturia will maybe one time a night and most denies unrestful sleep or excessive daytime somnolence. Past Medical History Cardiac Medical History: Denies: Atrial Fibrillation, Coronary Artery Disease, Myocardial Infarction, Hypertension, Peripheral Vascular Disease Pulmonary Medical History: Reports: Asthma - inhalers Denies: Bronchitis, Chronic Obstructive Pulmonary Disease (COPD), Intubation , Pneumonia, Respiratory Failure EENT Medical History: Denies: Ears, Nose Neurological Medical History: Denies: Multiple Sclerosis, Seizures Renal/ Medical History: Denies: End Stage Renal Disease Malignancy Medical History: Reports: None GI Medical History: Denies: Hepatitis, Hiatal Hernia Musculoskeltal Medical History: Reports: Arthritis Denies: Fibromyalgia Skin Medical History: Reports: Psoriasis Psychiatric Medical History: Reports: Depression Traumatic Medical History: Denies: Traumatic Brain Injury Hematology: Denies: Anemia, Sickle Cell Disease Infectious Medical History: Denies: Hepatitis B, Hepatitis C Past Surgical History Past Surgical History: Reports: Appendectomy, Cholecystectomy, Other - Breast implants Denies: Amputation, Hysterectomy, Mastectomy, Pacemaker Social History Information Source: Patient, [facility] Records Lives with: Family Smoking Status: Never Smoker Passive smoke exposure as: Both Frequency of Alcohol Use: None Hx Recreational Drug Use: No Hx Prescription Drug Abuse: No Do you have pets?: Yes Have you had any respiratory illnesses as a child?: No Have you been exposed to any sick contacts recently?: No Have you travelled outside of [place] in the past 12 months?: No - Advance Directive Resuscitation Status: Full Code Family History Family History: DM, Malignancy, Other - Asthma Parental Family History Reviewed: Yes Children Family History Reviewed: Yes Sibling(s) Family History Reviewed.: Yes Medication/Allergy Home Medications: Albuterol Sulfate [Proair Hfa Inhalation Aerosol 8.5 gm Mdi] 2 puff IH Q6HP PRN 02/26/17 Albuterol Sulfate [Ventolin 0.083% Neb 2.5 mg/3 ml Ampul] 1 vial NEB RTQ6HP PRN 02/26/17 Fluticasone/Salmeterol [Advair 250-50 Diskus 28 dose] 1 inh IH Q12 02/26/17 Ketorolac Tromethamine [Acular Ls] 1 drop OU Q12 02/26/17 Nortriptyline HCl [Pamelor 25 Mg Capsule] 25 mg PO QHS 02/26/17 Omeprazole 20 mg PO BID 02/26/17 Prednisone [Deltasone 5 mg Tablet] 5 mg PO DAILY 02/26/17 Pregabalin [Lyrica] 200 mg PO Q8 02/26/17 Allergies/Adverse Reactions: acetaminophen [From Percocet] Allergy (Severe, Verified 11/23/14 09:14) Anaphylaxis oxycodone HCl [From Percocet] Allergy (Severe, Verified 11/23/14 09:14) Anaphylaxis Shellfish * [Shellfish] Allergy (Severe, Verified 11/23/14 09:14) Anaphylaxis Review of Systems Constitutional: PRESENT: fatigue, weight loss. ABSENT: chills, fever(s), weight gain Eyes: ABSENT: visual disturbances Ears: ABSENT: hearing changes Nose, Mouth, and Throat: ABSENT: mouth pain, sore throat Cardiovascular: PRESENT: dyspnea on exertion. ABSENT: orthropnea, palpitations Respiratory: ABSENT: hemoptysis Gastrointestinal: ABSENT: abdominal pain, bloating, coffee ground emesis, dysphagia, heartburn, hematemesis, hematochezia, melena Genitourinary: ABSENT: dysuria, hematuria, nocturia Musculoskeletal: ABSENT: deformity, joint swelling Integumentary: ABSENT: pruritus, rash Neurological: ABSENT: abnormal gait, abnormal movements, abnormal speech, confusion, convulsions, focal weakness, frequent falls, memory loss Psychiatric: ABSENT: hallucinations, homidical ideation, suicidal ideation Endocrine: ABSENT: cold intolerance, heat intolerance, menstrual abnormalities, polydipsia, polyuria Hematologic/Lymphatic: PRESENT: easy bruising Physical Exam Vital Signs: Temp Pulse Resp BP Pulse Ox 97.6 F 112 H 18 107/52 L 97 02/26/17 07:01 02/26/17 08:10 02/26/17 09:01 02/26/17 09:01 02/26/17 09:01 General appearance: PRESENT: no acute distress, cooperative, disheveled, thin, well-developed. ABSENT: mild distress, morbidly obese, obese, severe distress Head exam: PRESENT: atraumatic, normocephalic Eye exam: PRESENT: conjunctiva pale, EOMI. ABSENT: conjunctival injection, conjunctiva pink, nystagmus, periorbital swelling, scleral icterus Mouth exam: PRESENT: dry mucosa, neck supple, tongue midline. ABSENT: laceration, moist Neck exam: ABSENT: carotid bruit, JVD, lymphadenopathy, thyromegaly, tracheal deviation, tracheostomy Respiratory exam: PRESENT: decreased breath sounds, prolonged expiratory phas, rales, rhonchi, symmetrical, unlabored. ABSENT: accessory muscle use, chest wall tenderness, clear to auscultation earl, crackles, retraction, stridor, tachypnea Cardiovascular exam: PRESENT: RRR, +S1, +S2 Pulses: PRESENT: normal radial pulses GI/Abdominal exam: PRESENT: diminished bowel sounds, soft Extremities exam: ABSENT: clubbing, joint swelling, pedal edema Musculoskeletal exam: ABSENT: deformity, dislocation, normal inspection Neurological exam: PRESENT: alert, awake Psychiatric exam: PRESENT: normal mood Skin exam: PRESENT: dry, warm Results Laboratory Results: 02/26/17 06:15 02/26/17 06:15 02/26/17 02/26/17 02/26/17 02:11 06:15 06:15 WBC 8.1 RBC 5.76 H Hgb 12.3 D Hct 38.4 MCV 67 L MCH 21.3 L MCHC 32.0 RDW 15.9 H Plt Count 168 Seg Neutrophils % Not Reportable Lymphocytes % Not Reportable Monocytes % Not Reportable Eosinophils % Not Reportable Basophils % Not Reportable Absolute Neutrophils Not Reportable Absolute Lymphocytes Not Reportable Absolute Monocytes Not Reportable Absolute Eosinophils Not Reportable Absolute Basophils Not Reportable Retic Count (auto) 0.70 Absolute Retic 0.040 Sodium 140.7 Potassium 3.8 Chloride 109 H Carbon Dioxide 23 Anion Gap 9 BUN 11 Creatinine 0.63 Est GFR ( Amer) > 60 Est GFR (Non-Af Amer) > 60 Glucose 166 H Calcium 8.6 Magnesium 2.1 Iron 41.6 TIBC 220 L % Saturation 19 Ferritin 66.40 Vitamin B12 713.0 Folate 17.40 Urine Color COLORLESS Urine Appearance CLEAR Urine pH 7.0 Ur Specific [place] 1.015 Urine Protein NEGATIVE Urine Glucose (UA) NEGATIVE Urine Ketones NEGATIVE Urine Blood NEGATIVE Urine Nitrite NEGATIVE Ur Leukocyte Esterase NEGATIVE Urine WBC (Auto) 1 02/26/17 02/26/17 06:15 06:15 Creatine Kinase 121 CK-MB (CK-2) 1.70 Troponin I < 0.012 Impressions: Chest X-Ray 02/25/17 00:00 IMPRESSION: No acute cardiopulmonary findings. 2010 [employer]- All Rights Reserved Chest/Abdomen CTA 02/25/17 20:07 IMPRESSION: 1. Small nonspecific soft tissue emphysema of the left upper hemithorax and minimally at the left upper mediastinum. 2. Possible decompression/rupture of a left mammary prosthesis; consider MRI correlation. 3. No pulmonary embolus. Assessment & Plan - Diagnosis (1) Churg-Emery syndrome with lung involvement Is this a current diagnosis for this admission?: Yes Plan: Continue current therapy patient may started on Nucala but only as an outpatient after acute event (2) GERD (gastroesophageal reflux disease) Is this a current diagnosis for this admission?: Yes (3) Pulmonary embolism Qualifiers: Pulmonary embolism type: other Chronicity: unspecified Acute cor pulmonale presence: without acute cor pulmonale Qualified Code(s): I26.99 - Other pulmonary embolism without acute cor pulmonale Is this a current diagnosis for this admission?: Yes Plan: Negative CTA but positive VQ scan suggest chronic thromboembolic disease additional workup occluding echo for possible pulmonary hypertension
[2017-02-27] MEDS: NORMAL SALINE 1000 ML 1,000 ML IV PRN (03:55)
[2017-02-27 05:53] LABS: HEMATOCRIT 34.3 % (36.0-47.0); HEMOGLOBIN 10.9 g/dL (12.0-15.5); MEAN CORPUSCULAR HGB CONC 31.7 g/dL (32.0-36.0); MEAN CORPUSCULAR VOLUME 66 fl (80-97); PLATELET COUNT 167 10^3/uL (150-450); WHITE BLOOD COUNT 10.8 10^3/uL (4.0-10.5)
[2017-02-27] MEDS: METHYLPREDNISOLONE INJ 40 MG/1 ML SDV IV SCH (06:25)
[2017-02-27] MEDS: LANSOPRAZOLE 30 MG TAB.RAP.DR PO SCH (06:25)
[2017-02-27] MEDS ORDERED: METHYLPREDNISOLONE INJ 40 MG/1 ML SDV IV SCH (08:48)
--- NOTE | 2017-02-27 08:51 | PDOC PROGRESS REPORT ---
Subjective Progress Note for:: 02/27/17 Subjective:: The patient states to feel slightly better. She is still very short of breath. She does have some productive cough. Reason For Visit: PULMONARY EMBOLUS Physical Exam Vital Signs: Temp Pulse Resp BP Pulse Ox 97.8 F 72 20 125/62 96 02/27/17 04:31 02/27/17 04:31 02/27/17 01:08 02/27/17 04:31 02/27/17 04:31 Intake & Output 02/26/17 02/27/17 02/28/17 06:59 06:59 06:59 Intake Total 1446 Balance 1446 Weight 47.7 kg General appearance: PRESENT: mild distress Head exam: PRESENT: atraumatic Eye exam: PRESENT: conjunctiva pink Neck exam: ABSENT: carotid bruit, JVD Respiratory exam: PRESENT: rhonchi, wheezes Cardiovascular exam: PRESENT: RRR, +S1, +S2 GI/Abdominal exam: PRESENT: normal bowel sounds, soft Extremities exam: PRESENT: full ROM Musculoskeletal exam: PRESENT: ambulatory Neurological exam: PRESENT: alert, awake Results Laboratory Results: 02/27/17 05:20 02/26/17 06:15 02/26/17 02/26/17 02/27/17 06:15 06:15 05:20 WBC 10.8 H RBC 5.20 Hgb 10.9 L Hct 34.3 L MCV 66 L MCH 21.0 L MCHC 31.7 L RDW 16.0 H Plt Count 167 Transferrin 171 L Folate 17.40 02/26/17 02/26/17 02/26/17 06:15 06:15 13:33 Creatine Kinase 121 146 H CK-MB (CK-2) 1.70 Troponin I < 0.012 02/26/17 13:33 Creatine Kinase CK-MB (CK-2) 1.67 Troponin I < 0.012 Impressions: Chest X-Ray 02/25/17 00:00 IMPRESSION: No acute cardiopulmonary findings. 2010 [employer]- All Rights Reserved Chest/Abdomen CTA 02/25/17 20:07 IMPRESSION: 1. Small nonspecific soft tissue emphysema of the left upper hemithorax and minimally at the left upper mediastinum. 2. Possible decompression/rupture of a left mammary prosthesis; consider MRI correlation. 3. No pulmonary embolus. Assessment & Plan - Diagnosis (1) Churg-Emery syndrome with lung involvement Is this a current diagnosis for this admission?: Yes Plan: We will continue with IV steroids. Awaiting lab results. Will follow pulmonary consultation recommendations (2) Dehydration Is this a current diagnosis for this admission?: Yes Plan: Continue IV fluids (3) Pulmonary embolism Qualifiers: Pulmonary embolism type: other Chronicity: unspecified Acute cor pulmonale presence: without acute cor pulmonale Qualified Code(s): I26.99 - Other pulmonary embolism without acute cor pulmonale Is this a current diagnosis for this admission?: Yes Plan: We will continue with current treatment (4) GERD (gastroesophageal reflux disease) Is this a current diagnosis for this admission?: Yes Plan: Continue PPIs
[2017-02-27] MEDS ORDERED: AZITHROMYCIN 250 MG TABLET PO ONE (08:56)
[2017-02-27] MEDS: IPRATROPIUM/ALBUTEROL 0.5-2.5 MG/3 ML AMPUL NEB PRN (09:40)
[2017-02-27] MEDS: METHYLPREDNISOLONE INJ 125 MG/2 ML SDV IV SCH ×3 (10:34→21:11)
[2017-02-27] MEDS: ENOXAPARIN SODIUM INJ 60 MG/0.6 ML DISP.SYRIN SUBCUT SCH ×2 (10:35→21:11)
[2017-02-27] MEDS: PREGABALIN 100 MG CAPSULE PO SCH ×3 (10:35→21:11)
[2017-02-27] MEDS ORDERED: BUDESONIDE NEB 0.5 MG/2 ML AMPUL NEB ONE (13:00)
[2017-02-27] MEDS: LEVALBUTEROL HCL NEB 1.25 MG/3 ML AMPUL NEB PRN ×2 (13:23→20:15)
--- NOTE | 2017-02-27 13:56 | PDOC PROGRESS REPORT ---
Subjective Progress Note for:: 02/27/17 Subjective:: still wheezing! Reason For Visit: PULMONARY EMBOLUS Physical Exam Vital Signs: Temp Pulse Resp BP Pulse Ox 97.7 F 74 16 123/68 96 02/27/17 08:15 02/27/17 09:40 02/27/17 09:40 02/27/17 08:15 02/27/17 09:40 Intake & Output 02/26/17 02/27/17 02/28/17 06:59 06:59 06:59 Intake Total 1446 Balance 1446 Weight 47.7 kg General appearance: PRESENT: no acute distress, cooperative, disheveled, thin, well-developed. ABSENT: mild distress, morbidly obese, obese, severe distress Head exam: PRESENT: atraumatic, normocephalic Eye exam: PRESENT: conjunctiva pale, EOMI. ABSENT: conjunctival injection, conjunctiva pink, nystagmus, periorbital swelling, scleral icterus Mouth exam: PRESENT: moist, neck supple, tongue midline Neck exam: ABSENT: carotid bruit, JVD, lymphadenopathy, thyromegaly, tracheal deviation, tracheostomy Respiratory exam: PRESENT: decreased breath sounds, prolonged expiratory phas, rhonchi, symmetrical, unlabored, wheezes. ABSENT: accessory muscle use, chest wall tenderness, clear to auscultation earl, crackles, retraction, stridor, tachypnea Cardiovascular exam: PRESENT: RRR, +S1, +S2 Pulses: PRESENT: normal radial pulses GI/Abdominal exam: PRESENT: diminished bowel sounds, soft Extremities exam: PRESENT: full ROM. ABSENT: clubbing, joint swelling Musculoskeletal exam: PRESENT: full ROM. ABSENT: deformity, dislocation Neurological exam: PRESENT: alert, awake Psychiatric exam: PRESENT: normal mood Skin exam: PRESENT: dry, warm Results Laboratory Results: 02/27/17 05:20 02/26/17 06:15 02/26/17 02/27/17 06:15 05:20 WBC 10.8 H RBC 5.20 Hgb 10.9 L Hct 34.3 L MCV 66 L MCH 21.0 L MCHC 31.7 L RDW 16.0 H Plt Count 167 Transferrin 171 L 02/26/17 02/26/17 02/26/17 06:15 06:15 13:33 Creatine Kinase 121 146 H CK-MB (CK-2) 1.70 Troponin I < 0.012 01/16/18 13:33 Creatine Kinase CK-MB (CK-2) 1.67 Troponin I < 0.012 Impressions: Chest X-Ray 02/25/17 00:00 IMPRESSION: No acute cardiopulmonary findings. 2011 [employer]- All Rights Reserved Chest/Abdomen CTA 02/25/17 20:07 IMPRESSION: 1. Small nonspecific soft tissue emphysema of the left upper hemithorax and minimally at the left upper mediastinum. 2. Possible decompression/rupture of a left mammary prosthesis; consider MRI correlation. 3. No pulmonary embolus. Assessment & Plan - Diagnosis (1) Churg-Emery syndrome with lung involvement Is this a current diagnosis for this admission?: Yes Plan: Add inhaled corticosteroid to current medical regimen (2) GERD (gastroesophageal reflux disease) Is this a current diagnosis for this admission?: Yes (3) Pulmonary embolism Qualifiers: Pulmonary embolism type: other Chronicity: unspecified Acute cor pulmonale presence: without acute cor pulmonale Qualified Code(s): I26.99 - Other pulmonary embolism without acute cor pulmonale Is this a current diagnosis for this admission?: Yes Plan: Negative CTA but positive VQ scan suggest chronic thromboembolic disease additional workup occluding echo for possible pulmonary hypertension
[2017-02-27] MEDS: BUDESONIDE NEB 0.5 MG/2 ML AMPUL NEB SCH (20:15)
[2017-02-28 00:34] LABS: APPEARANCE,URINE CLEAR; BILIRUBIN,URINE NEGATIVE (NEGATIVE); COLOR,URINE COLORLESS; GLUCOSE, URINE 50 mg/dL (NEGATIVE); KETONES,URINE NEGATIVE (NEGATIVE); LEUKOCYTE ESTERASE,URINE NEGATIVE (NEGATIVE); NITRITE,URINE NEGATIVE (NEGATIVE); PROTEIN,URINE NEGATIVE (NEGATIVE); URINE SPECIFIC GRAVITY 1.005; UROBILINOGEN,URINE NEGATIVE mg/dL (<2.0)
[2017-02-28] MEDS: METHYLPREDNISOLONE INJ 125 MG/2 ML SDV IV SCH ×4 (02:10→20:13)
[2017-02-28 05:34] LABS: HEMATOCRIT 31.6 % (36.0-47.0); HEMOGLOBIN 10.4 g/dL (12.0-15.5); MEAN CORPUSCULAR HEMOGLOBIN 21.4 pg (27.0-33.4); MEAN CORPUSCULAR HGB CONC 32.8 g/dL (32.0-36.0); MEAN CORPUSCULAR VOLUME 65 fl (80-97); PLATELET COUNT 144 10^3/uL (150-450); RED BLOOD COUNT 4.85 10^6/uL (3.72-5.28); RED CELL DISTRIBUTION WIDTH 15.9 % (11.5-14.0); WHITE BLOOD COUNT 8.8 10^3/uL (4.0-10.5)
[2017-02-28 05:46] LABS: BLOOD UREA NITROGEN 12 mg/dL (7-20); CALCIUM 8.3 mg/dL (8.4-10.2); GLUCOSE 145 mg/dL (75-110); POTASSIUM 3.2 mmol/L (3.6-5.0)
[2017-02-28] MEDS: NORMAL SALINE 1000 ML 1,000 ML IV PRN ×2 (05:49→21:40)
[2017-02-28] MEDS: LANSOPRAZOLE 30 MG TAB.RAP.DR PO SCH (05:52)
[2017-02-28 05:56] LABS: CARBON DIOXIDE 30 mmol/L (22-30); CHLORIDE 107 mmol/L (98-107); SODIUM 141.3 mmol/L (137-145)
[2017-02-28 06:01] LABS: ANION GAP 4 (5-19)
[2017-02-28] MEDS: BUDESONIDE NEB 0.5 MG/2 ML AMPUL NEB SCH ×2 (08:06→19:50)
[2017-02-28] MEDS: LEVALBUTEROL HCL NEB 1.25 MG/3 ML AMPUL NEB PRN (08:06)
[2017-02-28] MEDS: ENOXAPARIN SODIUM INJ 40 MG/0.4 ML DISP.SYRIN SUBCUT SCH (08:53)
[2017-02-28] MEDS: AZITHROMYCIN 250 MG TABLET PO SCH (09:01)
[2017-02-28] MEDS: POTASSIUM CHLORIDE 10 MEQ TABLET.SA PO SCH (09:01)
[2017-02-28] MEDS: PREGABALIN 100 MG CAPSULE PO SCH ×3 (09:01→22:43)
--- NOTE | 2017-02-28 13:28 | PDOC PROGRESS REPORT ---
Subjective Progress Note for:: 02/28/17 Subjective:: The patient states to feel slightly better. She is still wheezing. She is still short of breath and has cough. Reason For Visit: PULMONARY EMBOLUS Physical Exam Vital Signs: Temp Pulse Resp BP Pulse Ox 97.6 F 74 20 125/63 100 02/28/17 09:13 02/28/17 09:13 02/28/17 09:13 02/28/17 09:13 02/28/17 09:13 Intake & Output 02/27/17 02/28/17 03/01/17 06:59 06:59 06:59 Intake Total 1446 8496 Output Total 500 Balance 1446 7996 Weight 47.7 kg 47 kg General appearance: PRESENT: mild distress Head exam: PRESENT: atraumatic Eye exam: PRESENT: conjunctiva pink Neck exam: ABSENT: carotid bruit, JVD Respiratory exam: PRESENT: tachypnea, wheezes Cardiovascular exam: PRESENT: RRR, +S1, +S2 GI/Abdominal exam: PRESENT: normal bowel sounds, soft Extremities exam: PRESENT: full ROM Musculoskeletal exam: PRESENT: ambulatory Neurological exam: PRESENT: alert, awake Results Laboratory Results: 02/28/17 04:25 02/28/17 04:25 02/28/17 02/28/17 02/28/17 00:18 04:25 04:25 WBC 8.8 RBC 4.85 Hgb 10.4 L Hct 31.6 L MCV 65 L MCH 21.4 L MCHC 32.8 RDW 15.9 H Plt Count 144 L Sodium 141.3 Potassium 3.2 L Chloride 107 Carbon Dioxide 30 Anion Gap 4 L BUN 12 Creatinine 0.54 Est GFR ( Amer) > 60 Est GFR (Non-Af Amer) > 60 Glucose 145 H Calcium 8.3 L Urine Color COLORLESS Urine Appearance CLEAR Urine pH 6.0 Ur Specific [place] 1.005 Urine Protein NEGATIVE Urine Glucose (UA) 50 H Urine Ketones NEGATIVE Urine Blood NEGATIVE Urine Nitrite NEGATIVE Ur Leukocyte Esterase NEGATIVE Urine WBC (Auto) 0 Urine RBC (Auto) 0 Stool Occult Blood 02/28/17 09:06 WBC RBC Hgb Hct MCV MCH MCHC RDW Plt Count Sodium Potassium Chloride Carbon Dioxide Anion Gap BUN Creatinine Est GFR ( Amer) Est GFR (Non-Af Amer) Glucose Calcium Urine Color Urine Appearance Urine pH Ur Specific [place] Urine Protein Urine Glucose (UA) Urine Ketones Urine Blood Urine Nitrite Ur Leukocyte Esterase Urine WBC (Auto) Urine RBC (Auto) Stool Occult Blood POSITIVE 02/26/17 02/26/17 02/26/17 06:15 06:15 13:33 Creatine Kinase 121 146 H CK-MB (CK-2) 1.70 Troponin I < 0.012 02/26/17 13:33 Creatine Kinase CK-MB (CK-2) 1.67 Troponin I < 0.012 Impressions: Chest X-Ray 02/25/17 00:00 IMPRESSION: No acute cardiopulmonary findings. 2010 [employer]- All Rights Reserved Chest/Abdomen CTA 02/25/17 20:07 IMPRESSION: 1. Small nonspecific soft tissue emphysema of the left upper hemithorax and minimally at the left upper mediastinum. 2. Possible decompression/rupture of a left mammary prosthesis; consider MRI correlation. 3. No pulmonary embolus. Assessment & Plan - Diagnosis (1) Churg-Emery syndrome with lung involvement Is this a current diagnosis for this admission?: Yes Plan: We will continue with steroids and inhaled steroids as recommended by pulmonary (2) Dehydration Is this a current diagnosis for this admission?: Yes (3) Pulmonary embolism Qualifiers: Pulmonary embolism type: other Chronicity: unspecified Acute cor pulmonale presence: without acute cor pulmonale Qualified Code(s): I26.99 - Other pulmonary embolism without acute cor pulmonale Is this a current diagnosis for this admission?: Yes Plan: Most probably chronic thromboembolic disease with possible pulmonary hypertension. We will decrease the Lovenox to just 40 mg daily. We will obtain echocardiogram to evaluate right heart due to pulmonary hypertension (4) GERD (gastroesophageal reflux disease) Is this a current diagnosis for this admission?: Yes Plan: Continue current treatment
[2017-02-28] MEDS: TRAMADOL HCL 50 MG TABLET PO PRN (16:08)
[2017-02-28] MEDS: GUAIFENESIN SYRP 200 MG/10 ML UDC PO PRN (16:08)
--- NOTE | 2017-02-28 17:16 | PDOC PROGRESS REPORT ---
Subjective Progress Note for:: 02/28/17 Subjective:: better Reason For Visit: PULMONARY EMBOLUS Physical Exam Vital Signs: Temp Pulse Resp BP Pulse Ox 97.6 F 70 20 125/63 100 02/28/17 09:13 02/28/17 14:00 02/28/17 09:13 02/28/17 09:13 02/28/17 16:26 Intake & Output 02/27/17 02/28/17 03/01/17 06:59 06:59 06:59 Intake Total 1446 8496 650 Output Total 500 Balance 1446 7996 650 Weight 47.7 kg 47 kg General appearance: PRESENT: no acute distress, cooperative, disheveled, well- developed. ABSENT: mild distress, morbidly obese, obese, severe distress Head exam: PRESENT: atraumatic, normocephalic Eye exam: PRESENT: conjunctiva pale, EOMI. ABSENT: conjunctival injection, conjunctiva pink, nystagmus, periorbital swelling, scleral icterus Mouth exam: PRESENT: moist, neck supple, tongue midline Neck exam: ABSENT: carotid bruit, JVD, lymphadenopathy, thyromegaly, tracheal deviation, tracheostomy Respiratory exam: PRESENT: decreased breath sounds, prolonged expiratory phas, rhonchi, symmetrical, unlabored, wheezes. ABSENT: accessory muscle use, chest wall tenderness, clear to auscultation earl, crackles, rales, retraction, stridor , tachypnea Cardiovascular exam: PRESENT: RRR, +S1, +S2 Pulses: PRESENT: normal radial pulses GI/Abdominal exam: PRESENT: normal bowel sounds, soft. ABSENT: distended, guarding, mass, organolmegaly, rebound, tenderness Extremities exam: PRESENT: full ROM. ABSENT: clubbing, joint swelling Musculoskeletal exam: PRESENT: full ROM. ABSENT: deformity, dislocation Neurological exam: PRESENT: alert, awake Psychiatric exam: PRESENT: normal mood Skin exam: PRESENT: dry, warm Results Laboratory Results: 02/28/17 04:25 02/28/17 04:25 02/28/17 02/28/17 02/28/17 00:18 04:25 04:25 WBC 8.8 RBC 4.85 Hgb 10.4 L Hct 31.6 L MCV 65 L MCH 21.4 L MCHC 32.8 RDW 15.9 H Plt Count 144 L Sodium 141.3 Potassium 3.2 L Chloride 107 Carbon Dioxide 30 Anion Gap 4 L BUN 12 Creatinine 0.54 Est GFR ( Amer) > 60 Est GFR (Non-Af Amer) > 60 Glucose 145 H Calcium 8.3 L Urine Color COLORLESS Urine Appearance CLEAR Urine pH 6.0 Ur Specific [place] 1.005 Urine Protein NEGATIVE Urine Glucose (UA) 50 H Urine Ketones NEGATIVE Urine Blood NEGATIVE Urine Nitrite NEGATIVE Ur Leukocyte Esterase NEGATIVE Urine WBC (Auto) 0 Urine RBC (Auto) 0 Stool Occult Blood 02/28/17 09:06 WBC RBC Hgb Hct MCV MCH MCHC RDW Plt Count Sodium Potassium Chloride Carbon Dioxide Anion Gap BUN Creatinine Est GFR ( Amer) Est GFR (Non-Af Amer) Glucose Calcium Urine Color Urine Appearance Urine pH Ur Specific [place] Urine Protein Urine Glucose (UA) Urine Ketones Urine Blood Urine Nitrite Ur Leukocyte Esterase Urine WBC (Auto) Urine RBC (Auto) Stool Occult Blood POSITIVE 02/26/17 02/26/17 02/26/17 06:15 06:15 13:33 Creatine Kinase 121 146 H CK-MB (CK-2) 1.70 Troponin I < 0.012 02/26/17 13:33 Creatine Kinase CK-MB (CK-2) 1.67 Troponin I < 0.012 Impressions: Chest X-Ray 02/25/17 00:00 IMPRESSION: No acute cardiopulmonary findings. 2010 [employer] All Rights Reserved Chest/Abdomen CTA 02/25/17 20:07 IMPRESSION: 1. Small nonspecific soft tissue emphysema of the left upper hemithorax and minimally at the left upper mediastinum. 2. Possible decompression/rupture of a left mammary prosthesis; consider MRI correlation. 3. No pulmonary embolus. Assessment & Plan - Diagnosis (1) Churg-Emery syndrome with lung involvement Is this a current diagnosis for this admission?: Yes Plan: improved last 24 hrs (2) GERD (gastroesophageal reflux disease) Is this a current diagnosis for this admission?: Yes (3) Pulmonary embolism Qualifiers: Pulmonary embolism type: other Chronicity: unspecified Acute cor pulmonale presence: without acute cor pulmonale Qualified Code(s): I26.99 - Other pulmonary embolism without acute cor pulmonale Is this a current diagnosis for this admission?: Yes Plan: Negative CTA but positive VQ scan suggest chronic thromboembolic disease additional workup occluding echo for possible pulmonary hypertension
--- NOTE | 2017-02-28 17:43 | XCELERA REPORT ---
[address] [address] Transthoracic Echocardiogram Report Name: ROSEMARIE SOOD Age: 61 yrs Gender: Female : 1955 Patient Status: Inpatient Patient Location: [address] [place] [address] Study Date: 02/28/2017 01:53 PM Height: 57 in Weight: 103 lb BSA: 1.4 m2 Procedure: A complete two-dimensional transthoracic echocardiogram was performed (2D, M-mode, spectral and color flow Doppler). The study was technically difficult with many images being suboptimal in quality. Reason For Study: Pulmonary hypertension, chronic pulmonary emboli Ordering Physician: GURDEEP BANG Performed By: Leanne Pascual Interpretation Summary Left ventricular systolic function is low normal. There is normal left ventricular wall thickness. LV diastolic function could not be adequately assessed. The left ventricle is grossly normal size. Wall motion cannot be accurately commented on, but no definite regional wall motion abnormalities noted. The right ventricular systolic function is normal. The right atrium is normal. The left atrial size is normal. There is no mitral valve stenosis.Mild mitral regurgitation noted. There is no aortic valve stenosis No aortic regurgitation is present. There is a trace or physiologic amount of tricuspid regurgitation Tricuspid regurgitation jet envelope not well defined to measure RV systolic pressure accurately. The aortic root is not well visualized. There is a mild amount of mitral regurgitation The inferior vena cava appeared normal and decreased < 50% with respiration (RAP 10-15 mmHg) Minimal pericardial effusion. MMode/2D Measurements & Calculations RVDd: 2.2 cm LVIDd: 5.3 cm FS: 29.5 % Ao root diam: 2.9 cm IVSd: 0.74 cm LVIDs: 3.7 cm EDV(Teich): 134.5 ml LVPWd: 0.69 cm ESV(Teich): 59.1 ml Ao root area: 6.4 cm2 EF(Teich): 56.0 % Doppler Measurements & Calculations MV E max betty: MV dec slope: Ao V2 max: LV V1 max P.5 cm/sec 139.9 cm/sec 3.9 mmHg MV A max betty: 499.8 cm/sec2 Ao max PG: LV V1 max: 82.6 cm/sec MV dec time: 7.8 mmHg 98.6 cm/sec MV E/A: 1.1 0.18 sec PA V2 max: TR max betty: 87.0 cm/sec 277.7 cm/sec PA max PG: TR max P.6 mmHg 3.0 mmHg Left Ventricle The left ventricle is grossly normal size. There is normal left ventricular wall thickness. Left ventricular systolic function is low normal. LV diastolic function could not be adequately assessed. Wall motion cannot be accurately commented on, but no definite regional wall motion abnormalities noted. Right Ventricle The right ventricle is grossly normal size. There is normal right ventricular wall thickness. The right ventricular systolic function is normal. Atria The right atrium is normal. The left atrial size is normal. Interarterial septum not well visualized and not well dopplered. Cannot comment on ASD/PFO presence. Mitral Valve The mitral valve is grossly normal. There is no mitral valve stenosis. There is a mild amount of mitral regurgitation. Aortic Valve The aortic valve is not well visualized secondary to technical limitations. There is no aortic valve stenosis. No aortic regurgitation is present. Tricuspid Valve The tricuspid valve is not well visualized, but is grossly normal. There is no tricuspid stenosis. There is a trace or physiologic amount of tricuspid regurgitation. Tricuspid regurgitation jet envelope not well defined to measure RV systolic pressure accurately. Pulmonic Valve The pulmonic valve is not well visualized. Great Vessels The aortic root is not well visualized. The inferior vena cava appeared normal and decreased < 50% with respiration (RAP 10-15 mmHg). Effusions Minimal pericardial effusion. : GURDEEP BANG Shyamal
[2017-02-28] MEDS: IPRATROPIUM/ALBUTEROL 0.5-2.5 MG/3 ML AMPUL NEB PRN (19:50)
[2017-02-28] MEDS ORDERED: ENOXAPARIN SODIUM INJ 40 MG/0.4 ML DISP.SYRIN SUBCUT ONE (22:15)
[2017-03-01] MEDS: METHYLPREDNISOLONE INJ 125 MG/2 ML SDV IV SCH ×4 (02:31→23:56)
[2017-03-01 04:20] LABS: MEAN CORPUSCULAR HEMOGLOBIN 21.5 pg (27.0-33.4); MEAN CORPUSCULAR HGB CONC 32.3 g/dL (32.0-36.0); MEAN CORPUSCULAR VOLUME 67 fl (80-97); PLATELET COUNT 130 10^3/uL (150-450); RED BLOOD COUNT 4.65 10^6/uL (3.72-5.28); RED CELL DISTRIBUTION WIDTH 16.1 % (11.5-14.0); WHITE BLOOD COUNT 6.6 10^3/uL (4.0-10.5)
[2017-03-01 04:43] LABS: BLOOD UREA NITROGEN 18 mg/dL (7-20); CALCIUM 8.2 mg/dL (8.4-10.2); CHLORIDE 106 mmol/L (98-107); GLUCOSE 145 mg/dL (75-110); POTASSIUM 3.3 mmol/L (3.6-5.0)
[2017-03-01 04:58] LABS: CARBON DIOXIDE 28 mmol/L (22-30); SODIUM 139.1 mmol/L (137-145)
[2017-03-01 05:02] LABS: ANION GAP 5 (5-19)
[2017-03-01] MEDS: LANSOPRAZOLE 30 MG TAB.RAP.DR PO SCH (05:35)
[2017-03-01] MEDS: TRAMADOL HCL 50 MG TABLET PO PRN ×2 (07:19→13:50)
[2017-03-01] MEDS: BUDESONIDE NEB 0.5 MG/2 ML AMPUL NEB SCH ×2 (08:15→19:55)
[2017-03-01] MEDS: IPRATROPIUM/ALBUTEROL 0.5-2.5 MG/3 ML AMPUL NEB PRN ×2 (08:15→19:56)
--- NOTE | 2017-03-01 09:29 | PDOC PROGRESS REPORT ---
Subjective Progress Note for:: 03/01/17 Subjective:: The patient states to feel better. She is still wheezing but she is able to ambulate without any dyspnea. Her echocardiogram was essentially unremarkable. No right ventricular strain was noted. Reason For Visit: PULMONARY EMBOLUS Physical Exam Vital Signs: Temp Pulse Resp BP Pulse Ox 97.6 F 66 16 112/61 99 03/01/17 07:44 03/01/17 07:44 03/01/17 07:44 03/01/17 07:44 03/01/17 07:44 Intake & Output 02/28/17 03/01/17 03/02/17 06:59 06:59 06:59 Intake Total 8496 2664 Output Total 500 0 Balance 7996 2664 Weight 47 kg 47.5 kg General appearance: PRESENT: mild distress Head exam: PRESENT: atraumatic Eye exam: PRESENT: conjunctival injection Neck exam: ABSENT: carotid bruit, JVD Respiratory exam: PRESENT: rhonchi, wheezes Cardiovascular exam: PRESENT: +S1, +S2 Pulses: PRESENT: +1 pedal pulses bilateral Vascular exam: PRESENT: normal capillary refill GI/Abdominal exam: PRESENT: normal bowel sounds, soft Extremities exam: PRESENT: full ROM Musculoskeletal exam: PRESENT: ambulatory Neurological exam: PRESENT: alert, awake Results Laboratory Results: 03/01/17 04:05 03/01/17 04:05 02/28/17 03/01/17 03/01/17 09:06 04:05 04:05 WBC 6.6 RBC 4.65 Hgb 10.0 L Hct 31.0 L MCV 67 L MCH 21.5 L MCHC 32.3 RDW 16.1 H Plt Count 130 L Sodium 139.1 Potassium 3.3 L Chloride 106 Carbon Dioxide 28 Anion Gap 5 BUN 18 Creatinine 0.51 L Est GFR ( Amer) > 60 Est GFR (Non-Af Amer) > 60 Glucose 145 H Calcium 8.2 L Stool Occult Blood POSITIVE 02/26/17 02/26/17 02/26/17 06:15 06:15 13:33 Creatine Kinase 121 146 H CK-MB (CK-2) 1.70 Troponin I < 0.012 02/26/17 13:33 Creatine Kinase CK-MB (CK-2) 1.67 Troponin I < 0.012 Impressions: Chest X-Ray 02/25/17 00:00 IMPRESSION: No acute cardiopulmonary findings. 2010 [employer]- All Rights Reserved Chest/Abdomen CTA 02/25/17 20:07 IMPRESSION: 1. Small nonspecific soft tissue emphysema of the left upper hemithorax and minimally at the left upper mediastinum. 2. Possible decompression/rupture of a left mammary prosthesis; consider MRI correlation. 3. No pulmonary embolus. Assessment & Plan - Diagnosis (1) Churg-Emery syndrome with lung involvement Is this a current diagnosis for this admission?: Yes Plan: We will continue with the steroids. Will slowly wean off the IV and switch to p.o. steroids (2) Dehydration Is this a current diagnosis for this admission?: Yes Plan: Continue IV fluids (3) Pulmonary embolism Qualifiers: Pulmonary embolism type: other Chronicity: unspecified Acute cor pulmonale presence: without acute cor pulmonale Qualified Code(s): I26.99 - Other pulmonary embolism without acute cor pulmonale Is this a current diagnosis for this admission?: Yes Plan: With a CT negative for PE and a normal echocardiogram I would suggest that the VQ scan was probably nonconclusive. (4) GERD (gastroesophageal reflux disease) Is this a current diagnosis for this admission?: Yes Plan: Continue current treatment (5) Hypokalemia Is this a current diagnosis for this admission?: Yes Plan: We will continue with supplementation of potassium (6) Bronchitis Is this a current diagnosis for this admission?: Yes Plan: Continue with a azithromycin
[2017-03-01] MEDS: ENOXAPARIN SODIUM INJ 40 MG/0.4 ML DISP.SYRIN SUBCUT SCH (10:10)
[2017-03-01] MEDS: PREGABALIN 100 MG CAPSULE PO SCH ×3 (10:10→21:32)
[2017-03-01] MEDS: POTASSIUM CHLORIDE 10 MEQ TABLET.SA PO SCH (10:11)
[2017-03-01] MEDS: AZITHROMYCIN 250 MG TABLET PO SCH (10:12)
[2017-03-01] MEDS: GUAIFENESIN SYRP 200 MG/10 ML UDC PO PRN (10:26)
[2017-03-01 10:52] LABS: APPEARANCE,URINE CLEAR; BILIRUBIN,URINE NEGATIVE (NEGATIVE); COLOR,URINE STRAW; GLUCOSE, URINE 50 mg/dL (NEGATIVE); KETONES,URINE NEGATIVE (NEGATIVE); LEUKOCYTE ESTERASE,URINE NEGATIVE (NEGATIVE); NITRITE,URINE NEGATIVE (NEGATIVE); PROTEIN,URINE NEGATIVE (NEGATIVE); URINE SPECIFIC GRAVITY 1.003; UROBILINOGEN,URINE NEGATIVE mg/dL (<2.0)
[2017-03-01 18:37] LABS: ANTIMYELOPEROXIDASE (MPO) AB <9.0 U/mL (0.0-9.0); ANTIPROTEINASE 3 (PR-3) AB <3.5 U/mL (0.0-3.5); CYTOPLASMIC (C-ANCA) <1:20 titer (Neg:<1:20)
[2017-03-01] MEDS: ONDANSETRON HCL INJ/PF 4 MG/2 ML SDV IV PRN (23:57)
[2017-03-02] MEDS: METHYLPREDNISOLONE INJ 125 MG/2 ML SDV IV SCH ×3 (05:55→16:45)
[2017-03-02] MEDS: LANSOPRAZOLE 30 MG TAB.RAP.DR PO SCH (05:55)
[2017-03-02] MEDS: IPRATROPIUM/ALBUTEROL 0.5-2.5 MG/3 ML AMPUL NEB PRN ×2 (08:09→20:03)
[2017-03-02] MEDS: BUDESONIDE NEB 0.5 MG/2 ML AMPUL NEB SCH ×2 (08:10→20:02)
[2017-03-02] MEDS: ENOXAPARIN SODIUM INJ 40 MG/0.4 ML DISP.SYRIN SUBCUT SCH (09:39)
[2017-03-02] MEDS: ACETAMINOPHEN 325 MG TABLET PO PRN (09:40)
[2017-03-02] MEDS: POTASSIUM CHLORIDE 10 MEQ TABLET.SA PO SCH (09:41)
[2017-03-02] MEDS: PREGABALIN 100 MG CAPSULE PO SCH ×3 (09:42→21:56)
[2017-03-02] MEDS: AZITHROMYCIN 250 MG TABLET PO SCH (09:42)
[2017-03-02 14:40] LABS: ATYPICAL PANCA <1:20 titer (Neg:<1:20); PERINUCLEAR (P-ANCA) <1:20 titer (Neg:<1:20)
--- NOTE | 2017-03-02 14:45 | PDOC PROGRESS REPORT ---
Subjective Progress Note for:: 03/02/17 Subjective:: The patient is a 61-year-old female with past medical history of Churg-Emery disease, neuropathy, COPD who was admitted on 02/25/17 dyspnea and possible pulmonary embolus noted by VQ scan. However, follow-up CTA did not demonstrate pulmonary embolus or right ventricular strain. The patient was seen on morning rounds. She is found resting in bed comfortably on room air. She states that her breathing has improved throughout this admission. She denies headache, dizziness, chest pain, palpitations, orthopnea, and cough. She has no new questions or concerns today. Reason For Visit: PULMONARY EMBOLUS Physical Exam Vital Signs: Temp Pulse Resp BP Pulse Ox 98.0 F 90 17 133/54 H 97 03/02/17 11:32 03/02/17 11:32 03/02/17 11:32 03/02/17 11:32 03/02/17 11:32 Intake & Output 03/01/17 03/02/17 03/03/17 06:59 06:59 06:59 Intake Total 2664 2873 420 Output Total 0 Balance 2664 2873 420 Weight 47.5 kg 49.5 kg General appearance: PRESENT: no acute distress, well-developed, well-nourished Head exam: PRESENT: atraumatic, normocephalic Eye exam: PRESENT: conjunctiva pink, EOMI, PERRLA. ABSENT: scleral icterus Ear exam: PRESENT: normal external ear exam Mouth exam: PRESENT: moist, tongue midline Neck exam: ABSENT: carotid bruit, JVD, lymphadenopathy, thyromegaly Respiratory exam: PRESENT: clear to auscultation earl, wheezes - Slight, end expiratory wheezing. ABSENT: rales, rhonchi Cardiovascular exam: PRESENT: RRR. ABSENT: diastolic murmur, rubs, systolic murmur Pulses: PRESENT: normal dorsalis pedis pul Vascular exam: PRESENT: normal capillary refill GI/Abdominal exam: PRESENT: normal bowel sounds, soft. ABSENT: distended, guarding, mass, organolmegaly, rebound, tenderness Rectal exam: PRESENT: deferred Extremities exam: PRESENT: full ROM. ABSENT: calf tenderness, clubbing, pedal edema Neurological exam: PRESENT: alert, awake, oriented to person, oriented to place , oriented to time, oriented to situation, CN II-XII grossly intact. ABSENT: motor sensory deficit Psychiatric exam: PRESENT: appropriate affect, normal mood. ABSENT: homicidal ideation, suicidal ideation Skin exam: PRESENT: dry, intact, warm. ABSENT: cyanosis, rash Results Laboratory Results: 03/01/17 04:05 03/01/17 04:05 02/26/17 02/26/17 02/26/17 06:15 06:15 13:33 Creatine Kinase 121 146 H CK-MB (CK-2) 1.70 Troponin I < 0.012 02/26/17 13:33 Creatine Kinase CK-MB (CK-2) 1.67 Troponin I < 0.012 Impressions: Chest X-Ray 02/25/17 00:00 IMPRESSION: No acute cardiopulmonary findings. 2010 [employer]- All Rights Reserved Chest/Abdomen CTA 02/25/17 20:07 IMPRESSION: 1. Small nonspecific soft tissue emphysema of the left upper hemithorax and minimally at the left upper mediastinum. 2. Possible decompression/rupture of a left mammary prosthesis; consider MRI correlation. 3. No pulmonary embolus. Assessment & Plan - Diagnosis (1) Churg-Emery syndrome with lung involvement Is this a current diagnosis for this admission?: Yes Plan: She appears to have done well with steroid reduction yesterday. Will slowly wean off the IV and switch to p.o. steroids. (2) Dehydration Is this a current diagnosis for this admission?: Yes Plan: Improved with IV fluids. (3) Pulmonary embolism Qualifiers: Pulmonary embolism type: other Chronicity: unspecified Acute cor pulmonale presence: without acute cor pulmonale Qualified Code(s): I26.99 - Other pulmonary embolism without acute cor pulmonale Is this a current diagnosis for this admission?: Yes Plan: CTA was negative for PE. Normal echocardiogram. It is unlikely that the patient has a PE and that the VQ scan was nonconclusive. (4) GERD (gastroesophageal reflux disease) Is this a current diagnosis for this admission?: Yes Plan: Continue PPI. (5) Hypokalemia Is this a current diagnosis for this admission?: Yes Plan: Continue potassium supplementation. (6) Bronchitis Is this a current diagnosis for this admission?: Yes - Time Time Spent with patient: 25-34 minutes Medications reviewed and adjusted accordingly: Yes
[2017-03-02] MEDS: GUAIFENESIN SYRP 200 MG/10 ML UDC PO PRN (16:44)
[2017-03-02] MEDS: TRAMADOL HCL 50 MG TABLET PO PRN (18:59)
[2017-03-03] MEDS: GUAIFENESIN SYRP 200 MG/10 ML UDC PO PRN
[2017-03-03 04:44] LABS: HEMATOCRIT 35.3 % (36.0-47.0); HEMOGLOBIN 11.2 g/dL (12.0-15.5); MEAN CORPUSCULAR HEMOGLOBIN 20.9 pg (27.0-33.4); MEAN CORPUSCULAR HGB CONC 31.9 g/dL (32.0-36.0); MEAN CORPUSCULAR VOLUME 66 fl (80-97); PLATELET COUNT 153 10^3/uL (150-450); RED BLOOD COUNT 5.37 10^6/uL (3.72-5.28); RED CELL DISTRIBUTION WIDTH 15.7 % (11.5-14.0); WHITE BLOOD COUNT 7.7 10^3/uL (4.0-10.5)
[2017-03-03 04:46] LABS: BLOOD UREA NITROGEN 20 mg/dL (7-20); CALCIUM 8.5 mg/dL (8.4-10.2); GLUCOSE 256 mg/dL (75-110)
[2017-03-03 05:09] LABS: CARBON DIOXIDE 30 mmol/L (22-30); CHLORIDE 99 mmol/L (98-107); POTASSIUM 3.8 mmol/L (3.6-5.0); SODIUM 134.9 mmol/L (137-145)
[2017-03-03 05:10] LABS: ANION GAP 6 (5-19)
[2017-03-03] MEDS: LANSOPRAZOLE 30 MG TAB.RAP.DR PO SCH (05:35)
[2017-03-03] MEDS: METHYLPREDNISOLONE INJ 125 MG/2 ML SDV IV SCH ×3 (05:35→12:06)
[2017-03-03] MEDS: IPRATROPIUM/ALBUTEROL 0.5-2.5 MG/3 ML AMPUL NEB PRN ×2 (07:52→19:43)
[2017-03-03] MEDS: BUDESONIDE NEB 0.5 MG/2 ML AMPUL NEB SCH ×2 (07:52→19:43)
[2017-03-03] MEDS: AZITHROMYCIN 250 MG TABLET PO SCH (09:41)
[2017-03-03] MEDS: POTASSIUM CHLORIDE 10 MEQ TABLET.SA PO SCH (09:41)
[2017-03-03] MEDS: PREGABALIN 100 MG CAPSULE PO SCH ×3 (09:41→21:24)
[2017-03-03] MEDS: ENOXAPARIN SODIUM INJ 40 MG/0.4 ML DISP.SYRIN SUBCUT SCH (09:42)
[2017-03-03] MEDS: ACETAMINOPHEN 325 MG TABLET PO PRN ×2 (09:43→17:55)
--- NOTE | 2017-03-03 12:03 | PDOC PROGRESS REPORT ---
Subjective Progress Note for:: 03/03/17 Subjective:: The patient is a 61-year-old female with past medical history of Churg-Emery disease, neuropathy, COPD who was admitted on 02/25/17 dyspnea and possible pulmonary embolus noted by VQ scan. However, follow-up CTA did not demonstrate pulmonary embolus or right ventricular strain. The patient was seen on morning rounds. She is found resting in bed comfortably on room air with family members present. She states that she is feeling well today and plans to ambulate in the hallways this afternoon. She denies headache, dizziness, chest pain, palpitations, orthopnea, and cough. She has no new questions or concerns today. Reason For Visit: PULMONARY EMBOLUS Physical Exam Vital Signs: Temp Pulse Resp BP Pulse Ox 98.4 F 74 18 122/65 96 03/03/17 07:53 03/03/17 07:53 03/03/17 07:53 03/03/17 07:53 03/03/17 07:53 Intake & Output 03/02/17 03/03/17 03/04/17 06:59 06:59 06:59 Intake Total 2873 1937 Balance 2873 1937 Weight 49.5 kg 49.9 kg General appearance: PRESENT: no acute distress, well-developed, well-nourished Head exam: PRESENT: atraumatic, normocephalic Eye exam: PRESENT: conjunctiva pink, EOMI, PERRLA. ABSENT: scleral icterus Ear exam: PRESENT: normal external ear exam Mouth exam: PRESENT: moist, tongue midline Neck exam: ABSENT: carotid bruit, JVD, lymphadenopathy, thyromegaly Respiratory exam: PRESENT: clear to auscultation earl, symmetrical, unlabored, wheezes - expiratory. ABSENT: rales, rhonchi Cardiovascular exam: PRESENT: RRR, +S1, +S2. ABSENT: diastolic murmur, rubs, systolic murmur Pulses: PRESENT: normal dorsalis pedis pul Vascular exam: PRESENT: normal capillary refill GI/Abdominal exam: PRESENT: normal bowel sounds, soft. ABSENT: distended, guarding, mass, organolmegaly, rebound, tenderness Rectal exam: PRESENT: deferred Extremities exam: PRESENT: full ROM. ABSENT: calf tenderness, clubbing, pedal edema Neurological exam: PRESENT: alert, awake, oriented to person, oriented to place , oriented to time, oriented to situation, CN II-XII grossly intact. ABSENT: motor sensory deficit Psychiatric exam: PRESENT: appropriate affect, normal mood. ABSENT: homicidal ideation, suicidal ideation Skin exam: PRESENT: dry, intact, warm. ABSENT: cyanosis, rash Results Laboratory Results: 03/03/17 04:20 03/03/17 04:20 03/03/17 03/03/17 04:20 04:20 WBC 7.7 RBC 5.37 H Hgb 11.2 L Hct 35.3 L MCV 66 L MCH 20.9 L MCHC 31.9 L RDW 15.7 H Plt Count 153 Sodium 134.9 L Potassium 3.8 Chloride 99 Carbon Dioxide 30 Anion Gap 6 BUN 20 Creatinine 0.60 Est GFR ( Amer) > 60 Est GFR (Non-Af Amer) > 60 Glucose 256 H Calcium 8.5 02/26/17 02/26/17 02/26/17 06:15 06:15 13:33 Creatine Kinase 121 146 H CK-MB (CK-2) 1.70 Troponin I < 0.012 02/26/17 13:33 Creatine Kinase CK-MB (CK-2) 1.67 Troponin I < 0.012 Impressions: Chest X-Ray 02/25/17 00:00 IMPRESSION: No acute cardiopulmonary findings. 2010 [employer]- All Rights Reserved Chest/Abdomen CTA 02/25/17 20:07 IMPRESSION: 1. Small nonspecific soft tissue emphysema of the left upper hemithorax and minimally at the left upper mediastinum. 2. Possible decompression/rupture of a left mammary prosthesis; consider MRI correlation. 3. No pulmonary embolus. Assessment & Plan - Diagnosis (1) Churg-Emery syndrome with lung involvement Is this a current diagnosis for this admission?: Yes Plan: Pt with increased wheezing today, though reports increased comfort/ease of breathing. Will continue current steroid dose. Consider further weaning tomorrow with plan to switch to p.o. steroids. The patient is on chronic steroid therapy; prednisone 5 mg daily. (2) Dehydration Is this a current diagnosis for this admission?: Yes Plan: Improved with IV fluids. (3) Pulmonary embolism Qualifiers: Pulmonary embolism type: other Chronicity: unspecified Acute cor pulmonale presence: without acute cor pulmonale Qualified Code(s): I26.99 - Other pulmonary embolism without acute cor pulmonale Is this a current diagnosis for this admission?: Yes Plan: CTA was negative for PE. Normal echocardiogram. It is unlikely that the patient has a PE and that the VQ scan was nonconclusive. (4) GERD (gastroesophageal reflux disease) Is this a current diagnosis for this admission?: Yes Plan: Continue PPI. (5) Hypokalemia Is this a current diagnosis for this admission?: Yes Plan: Continue potassium supplementation. (6) Bronchitis Is this a current diagnosis for this admission?: Yes - Time Time Spent with patient: 15-24 minutes Medications reviewed and adjusted accordingly: Yes Anticipated discharge: Home
[2017-03-03] MEDS: METHYLPREDNISOLONE INJ 40 MG/1 ML SDV IV SCH ×2 (17:13→23:16)
--- NOTE | 2017-03-03 18:32 | PDOC PROGRESS REPORT ---
Subjective Progress Note for:: 03/01/17 Subjective:: still wheezing but much better Reason For Visit: PULMONARY EMBOLUS Physical Exam Vital Signs: Temp Pulse Resp BP Pulse Ox 97.7 F 78 18 127/59 H 100 03/01/17 12:10 03/01/17 12:10 03/01/17 12:10 03/01/17 12:10 03/01/17 12:10 Intake & Output 02/28/17 03/01/17 03/02/17 06:59 06:59 06:59 Intake Total 8496 2664 737 Output Total 500 0 Balance 7996 2664 737 Weight 47 kg 47.5 kg General appearance: PRESENT: no acute distress, cooperative, well-developed. ABSENT: mild distress, morbidly obese, obese, severe distress Head exam: PRESENT: atraumatic, normocephalic Eye exam: PRESENT: conjunctiva pale, EOMI. ABSENT: conjunctival injection, conjunctiva pink, nystagmus, periorbital swelling, scleral icterus Mouth exam: PRESENT: moist, neck supple, tongue midline. ABSENT: dry mucosa, laceration Neck exam: ABSENT: carotid bruit, JVD, lymphadenopathy, thyromegaly, tracheal deviation, tracheostomy Respiratory exam: PRESENT: decreased breath sounds, prolonged expiratory phas, rhonchi, symmetrical, unlabored, wheezes. ABSENT: accessory muscle use, chest wall tenderness, clear to auscultation earl, crackles, retraction, stridor, tachypnea Cardiovascular exam: PRESENT: RRR, +S1, +S2 Pulses: PRESENT: normal radial pulses GI/Abdominal exam: PRESENT: diminished bowel sounds, soft Extremities exam: PRESENT: full ROM. ABSENT: calf tenderness, clubbing, joint swelling Musculoskeletal exam: PRESENT: ambulatory, full ROM. ABSENT: deformity, dislocation Neurological exam: PRESENT: alert, awake Psychiatric exam: PRESENT: normal mood Skin exam: PRESENT: dry, warm Results Laboratory Results: 03/01/17 04:05 03/01/17 04:05 03/01/17 03/01/17 03/01/17 04:05 04:05 10:20 WBC 6.6 RBC 4.65 Hgb 10.0 L Hct 31.0 L MCV 67 L MCH 21.5 L MCHC 32.3 RDW 16.1 H Plt Count 130 L Sodium 139.1 Potassium 3.3 L Chloride 106 Carbon Dioxide 28 Anion Gap 5 BUN 18 Creatinine 0.51 L Est GFR ( Amer) > 60 Est GFR (Non-Af Amer) > 60 Glucose 145 H Calcium 8.2 L Urine Color Urine Appearance Urine pH Ur Specific [place] Urine Protein Urine Glucose (UA) Urine Ketones Urine Blood Urine Nitrite Ur Leukocyte Esterase Urine WBC (Auto) Urine RBC (Auto) Stool Occult Blood POSITIVE 03/01/17 10:20 WBC RBC Hgb Hct MCV MCH MCHC RDW Plt Count Sodium Potassium Chloride Carbon Dioxide Anion Gap BUN Creatinine Est GFR ( Amer) Est GFR (Non-Af Amer) Glucose Calcium Urine Color STRAW Urine Appearance CLEAR Urine pH 7.0 Ur Specific [place] 1.003 Urine Protein NEGATIVE Urine Glucose (UA) 50 H Urine Ketones NEGATIVE Urine Blood NEGATIVE Urine Nitrite NEGATIVE Ur Leukocyte Esterase NEGATIVE Urine WBC (Auto) 1 Urine RBC (Auto) 0 Stool Occult Blood 02/26/17 02/26/17 02/26/17 06:15 06:15 13:33 Creatine Kinase 121 146 H CK-MB (CK-2) 1.70 Troponin I < 0.012 02/26/17 13:33 Creatine Kinase CK-MB (CK-2) 1.67 Troponin I < 0.012 Impressions: Chest X-Ray 02/25/17 00:00 IMPRESSION: No acute cardiopulmonary findings. 2011 [employer]- All Rights Reserved Chest/Abdomen CTA 02/25/17 20:07 IMPRESSION: 1. Small nonspecific soft tissue emphysema of the left upper hemithorax and minimally at the left upper mediastinum. 2. Possible decompression/rupture of a left mammary prosthesis; consider MRI correlation. 3. No pulmonary embolus. Assessment & Plan - Diagnosis (1) Churg-Emery syndrome with lung involvement Is this a current diagnosis for this admission?: Yes Plan: continues to improve (2) GERD (gastroesophageal reflux disease) Is this a current diagnosis for this admission?: Yes (3) Pulmonary embolism Qualifiers: Pulmonary embolism type: other Chronicity: unspecified Acute cor pulmonale presence: without acute cor pulmonale Qualified Code(s): I26.99 - Other pulmonary embolism without acute cor pulmonale Is this a current diagnosis for this admission?: Yes Plan: Negative CTA but positive VQ scan suggest chronic thromboembolic disease additional workup occluding echo for possible pulmonary hypertension
[2017-03-03] MEDS: ZOLPIDEM TARTRATE 5 MG TABLET PO PRN (22:24)
[2017-03-04 04:08] LABS: APPEARANCE,URINE CLEAR; BILIRUBIN,URINE NEGATIVE (NEGATIVE); COLOR,URINE STRAW; GLUCOSE, URINE NEGATIVE (NEGATIVE); KETONES,URINE NEGATIVE (NEGATIVE); LEUKOCYTE ESTERASE,URINE NEGATIVE (NEGATIVE); NITRITE,URINE NEGATIVE (NEGATIVE); PROTEIN,URINE NEGATIVE (NEGATIVE); URINE SPECIFIC GRAVITY 1.006; UROBILINOGEN,URINE NEGATIVE mg/dL (<2.0)
[2017-03-04] MEDS: TRAMADOL HCL 50 MG TABLET PO PRN (04:26)
[2017-03-04] MEDS: LANSOPRAZOLE 30 MG TAB.RAP.DR PO SCH (05:20)
[2017-03-04] MEDS: METHYLPREDNISOLONE INJ 40 MG/1 ML SDV IV SCH (05:20)
[2017-03-04 06:42] LABS: HEMATOCRIT 38.2 % (36.0-47.0); HEMOGLOBIN 12.3 g/dL (12.0-15.5); MEAN CORPUSCULAR HEMOGLOBIN 21.3 pg (27.0-33.4); MEAN CORPUSCULAR HGB CONC 32.1 g/dL (32.0-36.0); MEAN CORPUSCULAR VOLUME 66 fl (80-97); PLATELET COUNT 191 10^3/uL (150-450); RED BLOOD COUNT 5.75 10^6/uL (3.72-5.28); RED CELL DISTRIBUTION WIDTH 15.9 % (11.5-14.0); WHITE BLOOD COUNT 8.9 10^3/uL (4.0-10.5)
[2017-03-04] MEDS ORDERED: DEXTROSE 40% GEL 15 GM TUBE PO PRN ×2 (08:20)
[2017-03-04] MEDS ORDERED: DEXTROSE 50%-WATER 25 GM/50 ML DISP.SYRIN IV PRN ×2 (08:20)
[2017-03-04] MEDS ORDERED: GLUCAGON,HUMAN RECOMB 1 MG INJ IM PRN (08:20)
[2017-03-04] MEDS: BUDESONIDE NEB 0.5 MG/2 ML AMPUL NEB SCH ×2 (08:25→20:32)
[2017-03-04] MEDS: IPRATROPIUM/ALBUTEROL 0.5-2.5 MG/3 ML AMPUL NEB PRN ×2 (08:25→20:32)
--- NOTE | 2017-03-04 08:25 | PDOC PROGRESS REPORT ---
Subjective Progress Note for:: 03/04/17 Subjective:: The patient states to feel better. She still has some mild residual cough. Discussed the need to get out of bed to ambulate. Reason For Visit: PULMONARY EMBOLUS Physical Exam Vital Signs: Temp Pulse Resp BP Pulse Ox 97.8 F 72 17 125/68 97 03/04/17 07:50 03/04/17 07:50 03/04/17 07:50 03/04/17 07:50 03/04/17 07:50 Intake & Output 03/03/17 03/04/17 03/05/17 06:59 06:59 06:59 Intake Total 1936 1873 Balance 1936 1873 Weight 49.9 kg 51.4 kg General appearance: PRESENT: no acute distress Head exam: PRESENT: atraumatic Eye exam: PRESENT: conjunctiva pink Neck exam: ABSENT: carotid bruit, JVD Respiratory exam: PRESENT: clear to auscultation earl. ABSENT: wheezes Cardiovascular exam: PRESENT: RRR, +S1, +S2 GI/Abdominal exam: PRESENT: normal bowel sounds, soft Extremities exam: PRESENT: full ROM Musculoskeletal exam: PRESENT: ambulatory Neurological exam: PRESENT: alert, awake Results Laboratory Results: 03/04/17 05:23 03/03/17 04:20 03/04/17 03/04/17 03:50 05:23 WBC 8.9 RBC 5.75 H Hgb 12.3 Hct 38.2 MCV 66 L MCH 21.3 L MCHC 32.1 RDW 15.9 H Plt Count 191 Urine Color STRAW Urine Appearance CLEAR Urine pH 8.0 Ur Specific [place] 1.006 Urine Protein NEGATIVE Urine Glucose (UA) NEGATIVE Urine Ketones NEGATIVE Urine Blood NEGATIVE Urine Nitrite NEGATIVE Ur Leukocyte Esterase NEGATIVE Urine WBC (Auto) 1 Urine RBC (Auto) 0 02/26/17 02/26/17 02/26/17 06:15 06:15 13:33 Creatine Kinase 121 146 H CK-MB (CK-2) 1.70 Troponin I < 0.012 02/26/17 13:33 Creatine Kinase CK-MB (CK-2) 1.67 Troponin I < 0.012 Impressions: Chest X-Ray 02/25/17 00:00 IMPRESSION: No acute cardiopulmonary findings. 2010 [employer]- All Rights Reserved Chest/Abdomen CTA 02/25/17 20:07 IMPRESSION: 1. Small nonspecific soft tissue emphysema of the left upper hemithorax and minimally at the left upper mediastinum. 2. Possible decompression/rupture of a left mammary prosthesis; consider MRI correlation. 3. No pulmonary embolus. Assessment & Plan - Diagnosis (1) Churg-Emery syndrome with lung involvement Is this a current diagnosis for this admission?: Yes Plan: The respiratory status much improved with steroids (2) Dehydration Is this a current diagnosis for this admission?: Yes (3) Pulmonary embolism Qualifiers: Pulmonary embolism type: other Chronicity: unspecified Acute cor pulmonale presence: without acute cor pulmonale Qualified Code(s): I26.99 - Other pulmonary embolism without acute cor pulmonale Is this a current diagnosis for this admission?: Yes Plan: Most probably chronic pulmonary embolism (4) GERD (gastroesophageal reflux disease) Is this a current diagnosis for this admission?: Yes (5) Hypokalemia Is this a current diagnosis for this admission?: Yes Plan: Resolved with supplemental potassium (6) Bronchitis Is this a current diagnosis for this admission?: Yes (7) Hyperglycemia, drug-induced Is this a current diagnosis for this admission?: Yes Plan: We will start insulin sliding scale and try to wean off the prednisone
[2017-03-04] MEDS ORDERED: TRAMADOL HCL 50 MG TABLET PO PRN (09:18)
[2017-03-04] MEDS: PREDNISONE 20 MG TABLET PO SCH ×2 (10:32→17:21)
[2017-03-04] MEDS: AZITHROMYCIN 250 MG TABLET PO SCH (10:32)
[2017-03-04] MEDS: ENOXAPARIN SODIUM INJ 40 MG/0.4 ML DISP.SYRIN SUBCUT SCH (10:32)
[2017-03-04] MEDS: PREGABALIN 100 MG CAPSULE PO SCH ×3 (10:33→22:21)
[2017-03-04] MEDS: POTASSIUM CHLORIDE 10 MEQ TABLET.SA PO SCH (10:33)
--- NOTE | 2017-03-04 13:05 | RADIOLOGY REPORT (SQ) ---
EXAM DESCRIPTION: CHEST PA/LAT COMPLETED DATE/TIME: 03/04/2017 12:39 pm REASON FOR STUDY: cough COMPARISON: Two-view chest 02/25/2017 CT chest 02/26/2017 EXAM PARAMETERS: NUMBER OF VIEWS: two views TECHNIQUE: Digital Frontal and Lateral radiographic views of the chest acquired. RADIATION DOSE: NA LIMITATIONS: none FINDINGS: LUNGS AND PLEURA: No opacities, masses or pneumothorax. No pleural effusion. MEDIASTINUM AND HILAR STRUCTURES: No masses or contour abnormalities. HEART AND VASCULAR STRUCTURES: Heart normal size. No evidence for failure. BONES: No acute findings. HARDWARE: None in the chest. OTHER: No other significant finding. IMPRESSION: NO SIGNIFICANT RADIOGRAPHIC FINDING IN THE CHEST. TECHNICAL DOCUMENTATION: JOB ID: [id number] [employer]- All Rights Reserved
[2017-03-04] MEDS: INSULIN LISPRO 100 UNIT/ML 3 ML VIAL SUBCUT PRN ×3 (13:38→23:44)
--- NOTE | 2017-03-04 16:04 | PDOC PROGRESS REPORT ---
Subjective Progress Note for:: 03/04/17 Subjective:: Feeling better Reason For Visit: PULMONARY EMBOLUS Physical Exam Vital Signs: Temp Pulse Resp BP Pulse Ox 97.8 F 87 17 137/98 H 98 03/04/17 12:14 03/04/17 12:14 03/04/17 12:14 03/04/17 12:14 03/04/17 12:14 Intake & Output 03/03/17 03/04/17 03/05/17 06:59 06:59 06:59 Intake Total 19364 537 Balance 1936 1873 537 Weight 49.9 kg 51.4 kg General appearance: PRESENT: no acute distress, cooperative, disheveled, thin, well-developed. ABSENT: mild distress, morbidly obese, obese, severe distress Head exam: PRESENT: atraumatic, normocephalic Eye exam: PRESENT: conjunctiva pale, EOMI. ABSENT: conjunctival injection, conjunctiva pink, nystagmus, periorbital swelling, scleral icterus Mouth exam: PRESENT: moist, neck supple, tongue midline Neck exam: ABSENT: carotid bruit, JVD, lymphadenopathy, thyromegaly, tracheal deviation, tracheostomy Respiratory exam: PRESENT: decreased breath sounds, prolonged expiratory phas, rhonchi, symmetrical, unlabored, wheezes - Decreased very scattered. ABSENT: accessory muscle use, chest wall tenderness, clear to auscultation earl, crackles , rales, retraction, stridor, tachypnea Cardiovascular exam: PRESENT: RRR, +S1, +S2 Pulses: PRESENT: normal radial pulses GI/Abdominal exam: PRESENT: diminished bowel sounds, soft Extremities exam: PRESENT: full ROM. ABSENT: clubbing, joint swelling Musculoskeletal exam: PRESENT: full ROM, normal inspection. ABSENT: deformity, dislocation Neurological exam: PRESENT: alert, awake Psychiatric exam: PRESENT: normal mood Skin exam: PRESENT: dry, warm Results Laboratory Results: 03/04/17 05:23 03/03/17 04:20 03/04/17 03/04/17 03/04/17 03:50 05:23 14:13 WBC 8.9 RBC 5.75 H Hgb 12.3 Hct 38.2 MCV 66 L MCH 21.3 L MCHC 32.1 RDW 15.9 H Plt Count 191 Urine Color STRAW Urine Appearance CLEAR Urine pH 8.0 Ur Specific [place] 1.006 Urine Protein NEGATIVE Urine Glucose (UA) NEGATIVE Urine Ketones NEGATIVE Urine Blood NEGATIVE Urine Nitrite NEGATIVE Ur Leukocyte Esterase NEGATIVE Urine WBC (Auto) 1 Urine RBC (Auto) 0 Stool Occult Blood POSITIVE 02/26/17 02/26/17 02/26/17 06:15 06:15 13:33 Creatine Kinase 121 146 H CK-MB (CK-2) 1.70 Troponin I < 0.012 02/26/17 13:33 Creatine Kinase CK-MB (CK-2) 1.67 Troponin I < 0.012 Impressions: Chest/Abdomen CTA 02/25/17 20:07 IMPRESSION: 1. Small nonspecific soft tissue emphysema of the left upper hemithorax and minimally at the left upper mediastinum. 2. Possible decompression/rupture of a left mammary prosthesis; consider MRI correlation. 3. No pulmonary embolus. Chest X-Ray 03/04/17 12:00 IMPRESSION: NO SIGNIFICANT RADIOGRAPHIC FINDING IN THE CHEST. Assessment & Plan - Diagnosis (1) Churg-Emery syndrome with lung involvement Is this a current diagnosis for this admission?: Yes Plan: continues to improve (2) GERD (gastroesophageal reflux disease) Is this a current diagnosis for this admission?: Yes (3) Pulmonary embolism Qualifiers: Pulmonary embolism type: other Chronicity: unspecified Acute cor pulmonale presence: without acute cor pulmonale Qualified Code(s): I26.99 - Other pulmonary embolism without acute cor pulmonale Is this a current diagnosis for this admission?: Yes
[2017-03-04] MEDS: ZOLPIDEM TARTRATE 5 MG TABLET PO PRN (23:39)
[2017-03-05 06:44] LABS: ABSOLUTE LYMPHOCYTES (AUTO) 1.2 10^3/uL (0.5-4.7); ABSOLUTE MONOCYTES (AUTO) 0.8 10^3/uL (0.1-1.4); ABSOLUTE NEUT (AUTO) 8.6 10^3/uL (1.7-8.2); BASOPHILS % (AUTO) 0.4 % (0-2); HEMATOCRIT 38.8 % (36.0-47.0); HEMOGLOBIN 12.5 g/dL (12.0-15.5); LYMPHOCYTES % (AUTO) 11.3 % (13-45); MEAN CORPUSCULAR HEMOGLOBIN 21.2 pg (27.0-33.4); MEAN CORPUSCULAR HGB CONC 32.2 g/dL (32.0-36.0); MEAN CORPUSCULAR VOLUME 66 fl (80-97); MONOCYTES % (AUTO) 7.5 % (3-13); PLATELET COUNT 171 10^3/uL (150-450); RED BLOOD COUNT 5.88 10^6/uL (3.72-5.28); SEGMENTED NEUTROPHILS % (AUTO) 80.8 % (42-78); TOTAL CELLS COUNTED % (AUTO) 100 %; WHITE BLOOD COUNT 10.7 10^3/uL (4.0-10.5)
[2017-03-05] MEDS: LANSOPRAZOLE 30 MG TAB.RAP.DR PO SCH (06:50)
[2017-03-05 07:03] LABS: ALANINE AMINOTRANSFERASE 50 U/L (9-52); ALKALINE PHOSPHATASE 43 U/L (38-126); ANION GAP 7 (5-19); ASPARTATE AMINO TRANSFERASE 31 U/L (14-36); BILIRUBIN,DIRECT 0.1 mg/dL (0.0-0.4); BILIRUBIN,TOTAL 0.5 mg/dL (0.2-1.3); BLOOD UREA NITROGEN 26 mg/dL (7-20); CALCIUM 8.5 mg/dL (8.4-10.2); CARBON DIOXIDE 28 mmol/L (22-30); CHLORIDE 100 mmol/L (98-107); GLUCOSE 99 mg/dL (75-110); MAGNESIUM 2.3 mg/dL (1.6-2.3); POTASSIUM 3.7 mmol/L (3.6-5.0); SODIUM 135.2 mmol/L (137-145); TOTAL PROTEIN 5.1 g/dL (6.3-8.2)
[2017-03-05 07:38] LABS: HYPOCHROMASIA 1+; OVALOCYTES 1+; PLATELET COMMENT ADEQUATE; PLATELET LARGE PRESENT; POIKILOCYTOSIS 1+; POLYCHROMASIA SLIGHT; SCHISTOCYTES SLIGHT
[2017-03-05] MEDS: BUDESONIDE NEB 0.5 MG/2 ML AMPUL NEB SCH (08:21)
[2017-03-05] MEDS ORDERED: PREDNISONE 20 MG TABLET PO SCH (08:25)
--- NOTE | 2017-03-05 08:34 | PDOC DISCHARGE SUMMARY ---
General - Admit/Disc Date/PCP Admission Date/Primary Care Provider: 02/25/17 21:08 GURDEEP BANG, Discharge Date: 03/05/17 - Discharge Diagnosis (1) Churg-Emery syndrome with lung involvement Is this a current diagnosis for this admission?: Yes Summary: Continue prednisone. A follow-up with pulmonary as an outpatient. (2) Dehydration Is this a current diagnosis for this admission?: Yes Summary: Improved we will continue (3) Pulmonary embolism Is this a current diagnosis for this admission?: Yes Summary: The positive VQ scan and a negative CTA are more consistent with chronic thromboembolism. Also the echocardiogram was consistent with that. Will discharge patient on home without any anticoagulation (4) GERD (gastroesophageal reflux disease) Is this a current diagnosis for this admission?: Yes Summary: Continue current medications. Will follow up with GI for stool positive Hemoccult (5) Hypokalemia Is this a current diagnosis for this admission?: Yes Summary: Resolved the patient will resume her usual diet and will recheck potassium as an outpatient (6) Bronchitis Is this a current diagnosis for this admission?: Yes Summary: Resolved with the use of antibiotics (7) Hyperglycemia, drug-induced Is this a current diagnosis for this admission?: Yes Summary: We will recheck blood sugars as an outpatient once we start weaning off the prednisone - Additional Information Resuscitation Status: Full Code Discharge Diet: As Tolerated Discharge Activity: Activity As Tolerated Prescriptions: Prednisone [Deltasone 20 mg Tablet] 10 mg PO BID #60 tablet Home Medications: Albuterol Sulfate [Proair HFA Inhalation Aerosol 8.5 gm MDI] 2 puff IH Q6HP PRN 02/26/17 Albuterol Sulfate [Ventolin 0.083% Neb 2.5 mg/3 mL Ampul] 1 vial NEB RTQ6HP PRN 02/26/17 Fluticasone/Salmeterol [Advair 250-50 Diskus 28 dose] 1 inh IH Q12 02/26/17 Ketorolac Tromethamine [Acular Ls] 1 drop OU Q12 02/26/17 Nortriptyline HCl [Pamelor 25 mg Capsule] 25 mg PO QHS 02/26/17 Omeprazole 20 mg PO BID 02/26/17 Pregabalin [Lyrica] 200 mg PO Q8 02/26/17 Acetaminophen [Tylenol 325 mg Tablet] 650 mg PO Q4HP PRN tablet 03/05/17 Prednisone [Deltasone 20 mg Tablet] 10 mg PO BID #60 tablet 03/05/17 History of Present Illness History of Present Illness: ROSEMARIE SOOD is a 61 year old female Hospital Course Hospital Course: The patient did well after the hospitalization. After 3 days of high-dose IV steroids her symptomatology has improved. The initial evaluation with a VQ scan which was positive for pulmonary emboli was negated by a negative CT. The patient was switched from a treatment dose of Lovenox to just DVT prevention. She did quite well her wheezing has resolved. Her breathing symptomatology has improved she was seen by the refinish technician Physical Exam Vital Signs: Temp Pulse Resp BP Pulse Ox 98.5 F 66 16 141/68 H 99 03/05/17 07:52 03/05/17 07:52 03/05/17 07:52 03/05/17 07:52 03/05/17 07:52 Intake & Output 03/04/17 03/05/17 03/06/17 06:59 06:59 06:59 Intake Total 1874 3337 Balance 1874 3337 Weight 51.4 kg 49.5 kg General appearance: PRESENT: no acute distress Head exam: PRESENT: atraumatic Eye exam: PRESENT: conjunctiva pink Neck exam: ABSENT: carotid bruit, JVD Respiratory exam: PRESENT: clear to auscultation earl Cardiovascular exam: PRESENT: RRR, +S1, +S2 Pulses: PRESENT: +1 pedal pulses bilateral GI/Abdominal exam: PRESENT: normal bowel sounds, soft Extremities exam: PRESENT: full ROM Musculoskeletal exam: PRESENT: ambulatory Neurological exam: PRESENT: alert, awake Results Laboratory Results: 03/05/17 05:47 03/05/17 05:47 03/04/17 03/05/17 03/05/17 14:13 05:47 05:47 WBC 10.7 H RBC 5.88 H Hgb 12.5 Hct 38.8 MCV 66 L MCH 21.2 L MCHC 32.2 RDW 16.0 H Plt Count 171 Seg Neutrophils % 80.8 H Lymphocytes % 11.3 L Monocytes % 7.5 Eosinophils % 0.0 Basophils % 0.4 Absolute Neutrophils 8.6 H Absolute Lymphocytes 1.2 Absolute Monocytes 0.8 Absolute Eosinophils 0.0 Absolute Basophils 0.0 Sodium 135.2 L Potassium 3.7 Chloride 100 Carbon Dioxide 28 Anion Gap 7 BUN 26 H Creatinine 0.53 Est GFR ( Amer) > 60 Est GFR (Non-Af Amer) > 60 Glucose 99 Calcium 8.5 Magnesium 2.3 Total Bilirubin 0.5 AST 31 ALT 50 Alkaline Phosphatase 43 Total Protein 5.1 L Albumin 3.0 L Stool Occult Blood POSITIVE 02/26/17 02/26/17 02/26/17 06:15 06:15 13:33 Creatine Kinase 121 146 H CK-MB (CK-2) 1.70 Troponin I < 0.012 02/26/17 13:33 Creatine Kinase CK-MB (CK-2) 1.67 Troponin I < 0.012 Impressions: Chest/Abdomen CTA 02/25/17 20:07 IMPRESSION: 1. Small nonspecific soft tissue emphysema of the left upper hemithorax and minimally at the left upper mediastinum. 2. Possible decompression/rupture of a left mammary prosthesis; consider MRI correlation. 3. No pulmonary embolus. Chest X-Ray 03/04/17 12:00 IMPRESSION: NO SIGNIFICANT RADIOGRAPHIC FINDING IN THE CHEST.
[2017-03-05] MEDS ORDERED: INFLUENZA ADLT QUAD (36MOS+) 2017-18 VAC 0.5 ML SYR IM PRN (09:09)
[2017-03-05] MEDS: PREGABALIN 100 MG CAPSULE PO SCH (09:24)
[2017-03-05] MEDS: AZITHROMYCIN 250 MG TABLET PO SCH (09:24)
[2017-03-05] MEDS: ENOXAPARIN SODIUM INJ 40 MG/0.4 ML DISP.SYRIN SUBCUT SCH (09:24)
[2017-03-05] MEDS: POTASSIUM CHLORIDE 10 MEQ TABLET.SA PO SCH (09:26)
[2017-03-05 09:55] VITALS: BP 125/61
== END 2017-03-05 10:19 | disposition home or self-care (01) | DRG 542 ==
LOC: ER 15:48 → EH 21:08 → 3W 02-26 15:44
PROVIDERS: ADMIT Family Medicine; ATTEND Family Medicine
PROC: 02HV33Z Insertion of Infusion Device into Superior Vena Cava, Percutaneous Approach (ICD-10-PCS; principal; 2017-02-25)
PROC: 05JY3ZZ Inspection of Upper Vein, Percutaneous Approach (ICD-10-PCS; 2017-02-25)
PROC: 3E0234Z Introduction of Serum, Toxoid and Vaccine into Muscle, Percutaneous Approach (ICD-10-PCS; 2017-02-26)
PROC: 3E0234Z Introduction of Serum, Toxoid and Vaccine into Muscle, Percutaneous Approach (ICD-10-PCS; 2017-03-05)
DX: M30.1 Polyarteritis with lung involvement [Churg-Strauss] (principal); I26.99 Other pulmonary embolism without acute cor pulmonale; E86.0 Dehydration; K21.9 Gastro-esophageal reflux disease without esophagitis; E87.6 Hypokalemia; R73.9 Hyperglycemia, unspecified; T38.0X5A Adverse effect of glucocorticoids and synthetic analogues, initial encounter; J44.9 Chronic obstructive pulmonary disease, unspecified; G62.9 Polyneuropathy, unspecified; M19.90 Unspecified osteoarthritis, unspecified site; L40.9 Psoriasis, unspecified; F32.9 Major depressive disorder, single episode, unspecified; Z88.6 Allergy status to analgesic agent; Z91.013 Allergy to seafood; Z23 Encounter for immunization; Z79.899 Other long term (current) drug therapy; Z90.49 Acquired absence of other specified parts of digestive tract; Z98.82 Breast implant status; Z82.61 Family history of arthritis; Z83.3 Family history of diabetes mellitus; Z80.9 Family history of malignant neoplasm, unspecified; Z82.5 Family history of asthma and other chronic lower respiratory diseases
CPT/HCPCS: 36415; 71045; 71046; 71275; 80048; 80053; 81001; 82272; 82550; 82553; 82607; 82728; 82746; 82803; 82962; 83516; 83540; 83550; 83735; 84443; 84466; 84484; 85025; 85027; 85045; 85610; 85730; 86256; 90686; 93005; 93010; 93306; 94640; 99285; C1751; J1650; J1815; J2405; J2550; J2920; J2930; J3490; J7030; J7512; J7620

== ENCOUNTER → 2017-02-25 | Outpatient (CLI) | payer MEDICAID ==
--- NOTE | 2017-02-25 13:48 | RADIOLOGY REPORT (SQ) ---
EXAM DESCRIPTION: CHEST PA/LAT COMPLETED DATE/TIME: 02/25/2017 1:40 pm REASON FOR STUDY: DYSPNEA, SOB COMPARISON: 07/26/2008 EXAM PARAMETERS: NUMBER OF VIEWS: two views TECHNIQUE: Digital Frontal and Lateral radiographic views of the chest acquired. RADIATION DOSE: NA LIMITATIONS: none FINDINGS: LUNGS AND PLEURA: No new opacities, masses or pneumothorax. No pleural effusion. MEDIASTINUM AND HILAR STRUCTURES: No masses or contour abnormalities. HEART AND VASCULAR STRUCTURES: Heart normal size. No evidence for failure. BONES: No acute findings. HARDWARE: None in the chest. OTHER: No other significant finding. IMPRESSION: NO ACUTE CARDIOPULMONARY PROCESS. NO SIGNIFICANT CHANGE FROM PRIOR STUDY. TECHNICAL DOCUMENTATION: JOB ID: [id number] [employer]- All Rights Reserved
--- NOTE | 2017-02-25 15:21 | RADIOLOGY REPORT (SQ) ---
EXAM DESCRIPTION: NM LUNG VENT/PERF SCAN COMPLETED DATE/TIME: 02/25/2017 2:49 pm REASON FOR STUDY: DYSPNEA, SOB R06.09 OTHER FORMS OF DYSPNEA COMPARISON: None. RADIONUCLIDE AND DOSE: 5.3 millicuries TC-99m MAA Intravenous 29.9 millicuries TC-99m DTPA Inhaled aerosol TECHNIQUE: Eight views of the lungs acquired post ventilation of DTPA aerosol. Eight matching views of the lungs acquired following injection of MAA. LIMITATIONS: See below. FINDINGS: VENTILATION: There is extensive air-trapping with most of the radiopharmaceutical in the b ronchi. PERFUSION: Segmental perfusion defects in the middle lobe and extensive decreased perfusion throughou t the left lobe. OTHER: No other significant finding. IMPRESSION: High probability for pulmonary emboli. TECHNICAL DOCUMENTATION: JOB ID: [id number] [employer]- All Rights Reserved
== END ==
LOC: RAD 12:18
PROVIDERS: ATTEND Internal Medicine
DX: R06.00 Dyspnea, unspecified (principal); I26.99 Other pulmonary embolism without acute cor pulmonale
CPT/HCPCS: 82565; 71046; 78582; A9540; A9567; Q9969

== ENCOUNTER → 2017-02-25 | Outpatient (CLI) | payer MEDICAID ==
[2017-02-25 11:54] LABS: ABSOLUTE BASOPHILS # (AUTO) 0.1 10^3/uL (0.0-0.2); ABSOLUTE EOSINOPHILS # (AUTO) 1.3 10^3/uL (0.0-0.6); ABSOLUTE LYMPHOCYTES (AUTO) 1.5 10^3/uL (0.5-4.7); ABSOLUTE MONOCYTES (AUTO) 0.4 10^3/uL (0.1-1.4); ABSOLUTE NEUT (AUTO) 2.5 10^3/uL (1.7-8.2); BASOPHILS % (AUTO) 1.2 % (0-2); EOSINOPHILS % (AUTO) 22.2 % (0-6); HEMOGLOBIN 14.5 g/dL (12.0-15.5); LYMPHOCYTES % (AUTO) 26.6 % (13-45); MEAN CORPUSCULAR HEMOGLOBIN 21.6 pg (27.0-33.4); MEAN CORPUSCULAR HGB CONC 32.2 g/dL (32.0-36.0); MEAN CORPUSCULAR VOLUME 67 fl (80-97); MONOCYTES % (AUTO) 7.4 % (3-13); PLATELET COUNT 159 10^3/uL (150-450); RED BLOOD COUNT 6.74 10^6/uL (3.72-5.28); RED CELL DISTRIBUTION WIDTH 16.1 % (11.5-14.0); SEGMENTED NEUTROPHILS % (AUTO) 42.6 % (42-78); TOTAL CELLS COUNTED % (AUTO) 100 %; WHITE BLOOD COUNT 5.8 10^3/uL (4.0-10.5)
[2017-02-25 12:14] LABS: ALANINE AMINOTRANSFERASE 25 U/L (9-52); ALBUMIN 4.7 g/dL (3.5-5.0); ALKALINE PHOSPHATASE 48 U/L (38-126); ANION GAP 11 (5-19); ASPARTATE AMINO TRANSFERASE 34 U/L (14-36); BILIRUBIN,DIRECT 0.3 mg/dL (0.0-0.4); BILIRUBIN,TOTAL 0.5 mg/dL (0.2-1.3); BLOOD UREA NITROGEN 12 mg/dL (7-20); CALCIUM 9.4 mg/dL (8.4-10.2); CARBON DIOXIDE 27 mmol/L (22-30); CHLORIDE 106 mmol/L (98-107); GLUCOSE 103 mg/dL (75-110); POTASSIUM 3.8 mmol/L (3.6-5.0); SODIUM 143.8 mmol/L (137-145); TOTAL PROTEIN 7.5 g/dL (6.3-8.2)
== END ==
LOC: OD 11:13
PROVIDERS: ATTEND Internal Medicine
DX: T50.8X1A Poisoning by diagnostic agents, accidental (unintentional), initial encounter (principal); I26.99 Other pulmonary embolism without acute cor pulmonale; R53.83 Other fatigue
CPT/HCPCS: 36415; 80053; 84443; 85025; 85379

== ENCOUNTER → 2017-06-14 | Outpatient (CLI) | payer MEDICAID ==
--- NOTE | 2017-06-14 12:24 | RADIOLOGY REPORT (SQ) ---
EXAM DESCRIPTION: T SPINE AP/LAT COMPLETED DATE/TIME: 06/14/2017 9:58 am REASON FOR STUDY: RADICULOPATHY, THORACIC REGION M54.14 RADICULOPATHY, THORACIC REGION COMPARISON: CTA chest 02/26/2017 NUMBER OF VIEWS: Two views. TECHNIQUE: AP and lateral radiographic images acquired of the thoracic spine. LIMITATIONS: None. FINDINGS: MINERALIZATION: Normal. ALIGNMENT: 11 thoracic rib-bearing vertebral bodies are present. There is 15 of convex rightward thoracic curvature from the top of T4 to the bottom of T10. VERTEBRAE: No fracture or bone lesion. Maintained height, normal segmentation. DISCS: No significant loss of height or significant narrowing. No large osteophytes. HARDWARE: None in the spine. MEDIASTINUM AND SOFT TISSUES: Normal heart size and aortic contour. No soft tissue abnormality. VISUALIZED LUNG ROBBINS: Clear. OTHER: Clips right upper quadrant post cholecystectomy IMPRESSION: Mild convex rightward thoracic curvature. No high-grade disc space narrowing. No bulky bony spurring. TECHNICAL DOCUMENTATION: JOB ID: [id number] [employer]- All Rights Reserved Reading location - IP/workstation name: [email or web address]
== END ==
LOC: OD 09:38
PROVIDERS: ATTEND Internal Medicine
DX: M54.14 Radiculopathy, thoracic region (principal)
CPT/HCPCS: 72070

== ENCOUNTER → 2017-12-23 | Outpatient (CLI) | payer MEDICAID ==
[2017-12-23 09:54] LABS: ABSOLUTE EOSINOPHILS # (AUTO) 0.1 10^3/uL (0.0-0.6); ABSOLUTE LYMPHOCYTES (AUTO) 2.3 10^3/uL (0.5-4.7); ABSOLUTE MONOCYTES (AUTO) 0.7 10^3/uL (0.1-1.4); ABSOLUTE NEUT (AUTO) 3.9 10^3/uL (1.7-8.2); BASOPHILS % (AUTO) 0.5 % (0-2); EOSINOPHILS % (AUTO) 2.1 % (0-6); HEMATOCRIT 46.1 % (36.0-47.0); HEMOGLOBIN 14.7 g/dL (12.0-15.5); LYMPHOCYTES % (AUTO) 32.1 % (13-45); MEAN CORPUSCULAR HEMOGLOBIN 21.3 pg (27.0-33.4); MEAN CORPUSCULAR HGB CONC 31.9 g/dL (32.0-36.0); MEAN CORPUSCULAR VOLUME 67 fl (80-97); MONOCYTES % (AUTO) 10.1 % (3-13); PLATELET COUNT 225 10^3/uL (150-450); RED CELL DISTRIBUTION WIDTH 15.7 % (11.5-14.0); SEGMENTED NEUTROPHILS % (AUTO) 55.2 % (42-78); TOTAL CELLS COUNTED % (AUTO) 100 %; WHITE BLOOD COUNT 7.1 10^3/uL (4.0-10.5)
[2017-12-23 10:00] LABS: APPEARANCE,URINE CLEAR; BILIRUBIN,URINE NEGATIVE (NEGATIVE); COLOR,URINE YELLOW; GLUCOSE, URINE NEGATIVE (NEGATIVE); KETONES,URINE NEGATIVE (NEGATIVE); LEUKOCYTE ESTERASE,URINE TRACE (NEGATIVE); NITRITE,URINE NEGATIVE (NEGATIVE); PROTEIN,URINE NEGATIVE (NEGATIVE); URINE SPECIFIC GRAVITY 1.004; UROBILINOGEN,URINE NEGATIVE mg/dL (<2.0)
[2017-12-23 10:28] LABS: ALANINE AMINOTRANSFERASE 26 U/L (9-52); ALBUMIN 4.3 g/dL (3.5-5.0); ALKALINE PHOSPHATASE 50 U/L (38-126); ANION GAP 15 (5-19); ASPARTATE AMINO TRANSFERASE 29 U/L (14-36); BILIRUBIN,DIRECT 0.2 mg/dL (0.0-0.4); BILIRUBIN,TOTAL 0.6 mg/dL (0.2-1.3); BLOOD UREA NITROGEN 13 mg/dL (7-20); CALCIUM 9.8 mg/dL (8.4-10.2); CARBON DIOXIDE 32 mmol/L (22-30); CHLORIDE 96 mmol/L (98-107); GLUCOSE 93 mg/dL (75-110); POTASSIUM 3.9 mmol/L (3.6-5.0); SODIUM 142.6 mmol/L (137-145); TOTAL PROTEIN 7.1 g/dL (6.3-8.2)
[2017-12-25 18:36] LABS: M001-IGE PENICILLIUM CHRYSOGEN <0.10 kU/L (Class 0); M002-IGE CLADOSPORIUM HERBARUM <0.10 kU/L (Class 0); M004-IGE MUCOR RACEMOSUS <0.10 kU/L (Class 0); M005-IGE CANDIDA ALBICANS 1.39 kU/L (Class II); M006-IGE ALTERNARIA ALTERNATA <0.10 kU/L (Class 0); M009-IGE FUSARIUM PROLIFERATUM <0.10 kU/L (Class 0); M012-IGE AUREOBASIDI PULLULANS <0.10 kU/L (Class 0); M013-IGE PHOMA BETAE <0.10 kU/L (Class 0); M014-IGE EPICOCCUM PURPURASCEN <0.10 kU/L (Class 0)
[2017-12-26 01:42] LABS: M010-IGE STEMPHYLIUM HERBARUM <0.10 kU/L (Class 0)
== END ==
LOC: OD 09:02
PROVIDERS: ATTEND Internal Medicine Pulmonary Disease
DX: M30.1 Polyarteritis with lung involvement [Churg-Strauss] (principal)
CPT/HCPCS: 36415; 80053; 81001; 82785; 85025; 86003

== ENCOUNTER → 2018-01-24 | Outpatient (CLI) | payer MEDICAID ==
--- NOTE | 2018-01-24 14:24 | RADIOLOGY REPORT (SQ) ---
EXAM DESCRIPTION: CT CHEST WITHOUT COMPLETED DATE/TIME: 01/24/2018 1:37 pm REASON FOR STUDY: M30.1 POLYARTERITIS WITH LUNG INVOLVEMENT CHURG-RONY M30.1 POLYARTERITIS WITH LUNG INVOLVEMENT CHURG-RONY COMPARISON: CT chest from 02/26/2017. TECHNIQUE: CT scan performed of the chest without intravenous contrast. Images reviewed with lung, soft tissue and bone windows. Reconstructed coronal and sagittal MPR images reviewed. All images st ored on PACS. All CT scanners at this facility use dose modulation, iterative reconstruction, and/or weight based d osing when appropriate to reduce radiation dose to as low as reasonably achievable (ALARA). [facility]: Dose Right [facility]: CareDose [facility]: Dose Right [facility]: Teradose 4D [facility]: [employer] RADIATION DOSE: CT Rad equipment meets quality standard of care and radiation dose reduction techniq ues were employed. CTDIvol: 3.5 mGy. DLP: 121 mGy-cm. mGy. LIMITATIONS: No technical limitations. FINDINGS: LUNGS AND PLEURA: Scattered nodular ground-glass infiltrates in the lungs. Most notable i n the upper lobes. Appearance looks progressive and shifting compared to prior. Linear density farhad g the lower aspect of the right major fissure within the right middle lobe, subsegmental volume loss. Patchy nodular consolidation left lower lobe also noted. HILAR AND MEDIASTINAL STRUCTURES: Small calcified nodes. HEART AND VASCULAR STRUCTURES: Trace pericardial fluid. No aortic aneurysm. UPPER ABDOMEN: No significant findings. Limited exam. THYROID AND OTHER SOFT TISSUES: No masses. No adenopathy. BONES: No significant finding. HARDWARE: None in the chest. OTHER: No other significant findings. IMPRESSION: 1. Nodular pulmonary infiltrates as above. TECHNICAL DOCUMENTATION: JOB ID: [id number] Quality ID # [id number]: Final reports with documentation of one or more dose reduction techniques (e.g., Au tomated exposure control, adjustment of the mA and/or kV according to patient size, use of iterative reconstruction technique) 2010 [employer] All Rights Reserved Reading location - IP/workstation name: [email or web address]
== END ==
LOC: RAD 13:35
PROVIDERS: ATTEND Internal Medicine Pulmonary Disease
DX: M30.1 Polyarteritis with lung involvement [Churg-Strauss] (principal)
CPT/HCPCS: 71250

== ENCOUNTER → 2018-12-16 | Outpatient (CLI) | payer MEDICAID ==
[2018-12-16 11:29] LABS: ABSOLUTE LYMPHOCYTES (AUTO) 1.5 10^3/uL (0.5-4.7); ABSOLUTE MONOCYTES (AUTO) 0.4 10^3/uL (0.1-1.4); ABSOLUTE NEUT (AUTO) 3.4 10^3/uL (1.7-8.2); BASOPHILS % (AUTO) 0.8 % (0-2); EOSINOPHILS % (AUTO) 0.5 % (0-6); HEMATOCRIT 41.5 % (36.0-47.0); HEMOGLOBIN 13.4 g/dL (12.0-15.5); LYMPHOCYTES % (AUTO) 27.2 % (13-45); MEAN CORPUSCULAR HEMOGLOBIN 21.3 pg (27.0-33.4); MEAN CORPUSCULAR HGB CONC 32.3 g/dL (32.0-36.0); MEAN CORPUSCULAR VOLUME 66 fl (80-97); MONOCYTES % (AUTO) 7.8 % (3-13); PLATELET COUNT 166 10^3/uL (150-450); RED BLOOD COUNT 6.31 10^6/uL (3.72-5.28); RED CELL DISTRIBUTION WIDTH 15.7 % (11.5-14.0); SEGMENTED NEUTROPHILS % (AUTO) 63.7 % (42-78); TOTAL CELLS COUNTED % (AUTO) 100 %; WHITE BLOOD COUNT 5.4 10^3/uL (4.0-10.5)
[2018-12-16 11:54] LABS: ANISOCYTOSIS SLIGHT; POIKILOCYTOSIS SLIGHT; SCHISTOCYTES SLIGHT; TARGET CELLS SLIGHT
[2018-12-16 11:55] LABS: PLATELET COMMENT ADEQUATE
== END ==
LOC: OD 10:25
PROVIDERS: ATTEND Internal Medicine
DX: M31.6 Other giant cell arteritis (principal)
CPT/HCPCS: 36415; 85025; 85652

== ENCOUNTER → 2018-12-21 | Outpatient (CLI) | payer MEDICAID ==
--- NOTE | 2018-12-21 11:04 | RADIOLOGY REPORT (SQ) ---
EXAM DESCRIPTION: MRA HEAD WITHOUT COMPLETED DATE/TIME: 12/21/2018 10:37 am REASON FOR STUDY: (G45.3)AMAUROSIS FUGAX G45.3 AMAUROSIS FUGAX COMPARISON: None. TECHNIQUE: Axial 3-D [id number] acquisition imaging performed through the brain in the area of t he [place]. Images reformatted using 3-D MIPS. LIMITATIONS: None. FINDINGS: SOURCE IMAGES: No unexpected findings on source images. No large masses. 3-D MIP: No aneurysm. No occlusions. No significant stenosis. OTHER: No other significant finding. IMPRESSION: NORMAL MRA OF THE [place]. TECHNICAL DOCUMENTATION: JOB ID: [id number] [employer]- All Rights Reserved Reading location - IP/workstation name: [email or web address]
--- NOTE | 2018-12-21 11:06 | RADIOLOGY REPORT (SQ) ---
EXAM DESCRIPTION: MRI HEAD WITHOUT COMPLETED DATE/TIME: 12/21/2018 10:37 am REASON FOR STUDY: (G45.3)AMAUROSIS FUGAX G45.3 AMAUROSIS FUGAX COMPARISON: None. TECHNIQUE: Multiplanar imaging includes non-contrasted T1, T2, FLAIR, and diffusion with ADC map seq uences. Images stored on PACS. LIMITATIONS: None. FINDINGS: ANATOMY: No anomalies. Normal vascular flow voids. Pituitary fossa normal. CSF SPACES: Normal in size and contour. No hemorrhage. CEREBRUM: Sulci and gyri normal in size and contour. Moderate scattered high-signal intensity throug hout the white matter are predominantly periventricular. Most likely microvascular ischemia. . No evidence of hemorrhage, mass, or extraaxial fluid collection. POSTERIOR FOSSA: No signal alteration. No hemorrhage. No edema, masses or mass effect. Internal cj tory canals, cerebello-pontine angles, mastoids normal. DIFFUSION IMAGING: Negative for acute or sub-acute infarction. ORBITS: No masses. Globes normal. PARANASAL SINUSES: No fluid levels. Mucosa normal. OTHER: No other significant finding. IMPRESSION: Most likely microvascular ischemia. No acute intracranial process. EVIDENCE OF ACUTE STROKE: NO. TECHNICAL DOCUMENTATION: JOB ID: [id number] [employer]- All Rights Reserved Reading location - IP/workstation name: [email or web address]
== END ==
LOC: RAD 09:44
PROVIDERS: ATTEND Internal Medicine
DX: G45.3 Amaurosis fugax (principal)
CPT/HCPCS: 70544; 70551

== ENCOUNTER → 2019-05-29 | Outpatient (CLI) | payer MEDICAID ==
--- NOTE | 2019-05-29 11:41 | RADIOLOGY REPORT (SQ) ---
EXAM DESCRIPTION: CT CHEST WITHOUT IMAGES COMPLETED DATE/TIME: 05/29/2019 10:09 am REASON FOR STUDY: M30.1 POLYARTERITIS WITH LUNG INVOLVEMENT CHURG-RONY M30.1 POLYARTERITIS WITH LUNG INVOLVEMENT CHURG-RONY COMPARISON: CT of the chest without contrast from 01/24/2018. TECHNIQUE: CT scan performed of the chest without intravenous contrast. Images reviewed with lung, soft tissue and bone windows. Reconstructed coronal and sagittal MPR images reviewed. All images st ored on PACS. All CT scanners at this facility use dose modulation, iterative reconstruction, and/or weight based d osing when appropriate to reduce radiation dose to as low as reasonably achievable (ALARA). [facility]: Dose Right [facility]: CareDose [facility]: Dose Right [facility]: Teradose 4D [facility]: [employer] RADIATION DOSE: CT Rad equipment meets quality standard of care and radiation dose reduction techniq ues were employed. CTDIvol: 3.6 mGy. DLP: 126 mGy-cm. LIMITATIONS: No technical limitations. FINDINGS: LUNGS AND PLEURA: The trachea main bronchi are patent. The calcified 6 mm perifissural no dule in the apical segment of the right upper lobe is unchanged compared to the CT from 01/24/2018. There is no acute consolidation, ground-glass opacification, pleural effusion or pneumothorax. HILAR AND MEDIASTINAL STRUCTURES: Calcified nonenlarged mediastinal and hilar lymph nodes. There is no mediastinal mass or adenopathy. HEART AND VASCULAR STRUCTURES: No thoracic aortic dissection or aneurysm. No cardiomegaly or pericar dial effusion. UPPER ABDOMEN: Cholecystectomy clips. THYROID AND OTHER SOFT TISSUES: Bilateral breast implants. There is no adenopathy or mass. BONES: No acute fracture or osseous lesion. HARDWARE: None in the chest. OTHER: No other findings. IMPRESSION: No acute cardiopulmonary process. TECHNICAL DOCUMENTATION: JOB ID: [id number] Quality ID # [id number]: Final reports with documentation of one or more dose reduction techniques (e.g., Au tomated exposure control, adjustment of the mA and/or kV according to patient size, use of iterative reconstruction technique) 2010 [employer]- All Rights Reserved Reading location - IP/workstation name: [email or web address]
== END ==
LOC: RAD 09:58
PROVIDERS: ATTEND Internal Medicine Pulmonary Disease
DX: M30.1 Polyarteritis with lung involvement [Churg-Strauss] (principal)
CPT/HCPCS: 71250

== ENCOUNTER → 2019-07-20 | Outpatient (CLI) | payer MEDICAID ==
--- NOTE | 2019-07-20 10:53 | WOMENS IMAGING REPORT ---
EXAM DESCRIPTION: BONE DENSITY HIP/SPINE IMAGES COMPLETED DATE/TIME: 07/20/2019 10:23 am REASON FOR STUDY: M85.80 OTHER SPECIFIED DISORDERS OF BONE DENSITY AND STRUCTURE, UNSPECIFIED M85.80 OTH DISRD OF BONE DENSITY AND STRUCTURE, UNSPECIFIED COMPARISON: 04/03/2016. TECHNIQUE: Dual-Energy X-ray Absorptiometry (DEXA) of the AP Spine and Hip. LIMITATIONS: None. FINDINGS: LUMBAR SPINE: The bone mineral density (BMD) measured from L1-L4 in the AP projection correlates with a T-score of -1.0, which is normal as defined by the World Health Organization. BMD Change vs Baseline: 8.7% HIP: The bone mineral density (BMD) measured in the left hip correlates with a T-score of -2.5 in the neck , which is osteoporosis as defined by the World Health Organization. BMD Change vs Baseline: 4.7% 10 year Fracture Risk Assessment: Major Osteoporotic Fracture: Not available. Hip Fracture: Not available. IMPRESSION: 1. LUMBAR SPINE WHO CLASSIFICATION: NORMAL. 2. HIP WHO CLASSIFICATION: OSTEOPOROSIS. OVERALL ASSESSMENT: WHO CLASSIFICATION: OSTEOPOROSIS. COMMENT: The World Health Organization defines low BMD as follows: T-score: Normal: At or above -1.0 Osteopenia: Between -1.0 and -2.5 Osteoporosis: At or below -2.5 without fractures Established osteoporosis: At or below -2.5 with fractures In general, you may wish to consider: Diagnosis Treatment Follow-up DEXA Normal BMD Prevention 2-3 years Osteopenia Prevention/Therapy 1-2 years Osteoporosis Therapy Yearly TECHNICAL DOCUMENTATION: JOB ID: [id number] 2010 [employer]- All Rights Reserved Reading location - IP/workstation name: [email or web address]
== END ==
LOC: WI 09:40
PROVIDERS: ATTEND Internal Medicine Clinical Cardiac Electrophysiology
DX: M81.0 Age-related osteoporosis without current pathological fracture (principal); M15.9 Polyosteoarthritis, unspecified
CPT/HCPCS: 77080

== ENCOUNTER → 2019-09-29 | Outpatient (CLI) | payer MEDICAID ==
[2019-09-29 08:08] LABS: ABSOLUTE MONOCYTES (AUTO) 0.3 10^3/uL (0.1-1.4); MEAN CORPUSCULAR HEMOGLOBIN 21.3 pg (27.0-33.4); MEAN CORPUSCULAR HGB CONC 32.4 g/dL (32.0-36.0); RED CELL DISTRIBUTION WIDTH 16.1 % (11.5-14.0); TOTAL CELLS COUNTED % (AUTO) 100 %
[2019-09-29 08:22] LABS: ABSOLUTE LYMPHOCYTES (AUTO) 1.6 10^3/uL (0.5-4.7); ABSOLUTE NEUT (AUTO) 1.7 10^3/uL (1.7-8.2); BASOPHILS % (AUTO) 1.3 % (0-2); EOSINOPHILS % (AUTO) 1.2 % (0-6); HEMATOCRIT 41.9 % (36.0-47.0); HEMOGLOBIN 13.6 g/dL (12.0-15.5); LYMPHOCYTES % (AUTO) 42.3 % (13-45); MEAN CORPUSCULAR VOLUME 66 fl (80-97); MONOCYTES % (AUTO) 8.6 % (3-13); PLATELET COUNT 182 10^3/uL (150-450); RED BLOOD COUNT 6.37 10^6/uL (3.72-5.28); SEGMENTED NEUTROPHILS % (AUTO) 46.6 % (42-78); WHITE BLOOD COUNT 3.7 10^3/uL (4.0-10.5)
[2019-09-29 08:25] LABS: ALBUMIN 4.2 g/dL (3.5-5.0); ALKALINE PHOSPHATASE 56 U/L (38-126); ANION GAP 8 (5-19); ASPARTATE AMINO TRANSFERASE 29 U/L (14-36); BILIRUBIN,TOTAL 0.5 mg/dL (0.2-1.3); BLOOD UREA NITROGEN 12 mg/dL (7-20); CALCIUM 9.3 mg/dL (8.4-10.2); CARBON DIOXIDE 30 mmol/L (22-30); CHLORIDE 104 mmol/L (98-107); CHOLESTEROL 212.25 mg/dL (0-200); GLUCOSE 87 mg/dL (75-110); POTASSIUM 4.3 mmol/L (3.6-5.0); TRIGLYCERIDES 86 mg/dL (<150)
[2019-09-29 08:37] LABS: DIRECT LDL 87 mg/dL (<100)
== END ==
LOC: OD 07:25
PROVIDERS: ATTEND Internal Medicine
DX: I10 Essential (primary) hypertension (principal); J45.909 Unspecified asthma, uncomplicated; E78.5 Hyperlipidemia, unspecified; R53.83 Other fatigue
CPT/HCPCS: 36415; 80053; 80061; 84443; 85025

== ENCOUNTER → 2019-12-03 | Outpatient (CLI) | payer MEDICAID ==
--- NOTE | 2019-12-03 09:39 | RADIOLOGY REPORT (SQ) ---
EXAM DESCRIPTION: T SPINE AP/LAT IMAGES COMPLETED DATE/TIME: 12/03/2019 9:31 am REASON FOR STUDY: MID THORACIC RADICULOPATHY M54.14 RADICULOPATHY, THORACIC REGION COMPARISON: None. NUMBER OF VIEWS: Two views. TECHNIQUE: AP and lateral radiographic images acquired of the thoracic spine. LIMITATIONS: None. FINDINGS: MINERALIZATION: Normal. ALIGNMENT: S-shaped scoliosis. VERTEBRAE: No fracture or bone lesion. Maintained height, normal segmentation. DISCS: No significant loss of height or significant narrowing. No large osteophytes. HARDWARE: None in the spine. MEDIASTINUM AND SOFT TISSUES: Normal heart size and aortic contour. No soft tissue abnormality. VISUALIZED LUNG ROBBINS: Clear. OTHER: No other significant finding. IMPRESSION: S-SHAPED SCOLIOSIS. NO OTHER ACUTE OR SIGNIFICANT FINDINGS. TECHNICAL DOCUMENTATION: JOB ID: [id number] 2010 [employer]- All Rights Reserved Reading location - IP/workstation name: [email or web address]
== END ==
LOC: OD 09:17
PROVIDERS: ATTEND Internal Medicine
DX: M54.14 Radiculopathy, thoracic region (principal); M41.84 Other forms of scoliosis, thoracic region
CPT/HCPCS: 72070